=== PATIENT | male | born 1930 | race Caucasian/White ===

== ENCOUNTER 2018-11-28 16:25 | Inpatient (IN) | payer MEDICARE, OTHER ==
[~2018-11-28] VITALS: Ht 185.4 cm; Wt 97.1 kg
[2018-11-28 16:25] VITALS: BP 129/67
[~2018-11-28 16:25] MED LIST: AMLO5TAB6 PO; ASPI81TA26 PO; LISI40TA PO; VITA100067 PO
[2018-11-28] MEDS ORDERED: MAALOX 30 ML SUSP *UDC PO PRN (17:00)
[2018-11-28] MEDS ORDERED: ONDANSETRON 4 MG TAB (S0181) PO PRN (17:00)
[2018-11-28] MEDS ORDERED: ATOR40TA75 PO (17:16)
[2018-11-28] MEDS ORDERED: LISI40TA PO (17:16)
[2018-11-28] MEDS ORDERED: COLA100C5 PO (17:16)
[2018-11-28] MEDS ORDERED: ACET-907 PO (17:16)
[2018-11-28] MEDS ORDERED: LOVE1INJ SC (17:16)
[2018-11-28] MEDS ORDERED: D32000TA PO (17:16)
[2018-11-28] MEDS ORDERED: BAYE325T12 PO (17:16)
[2018-11-28] MEDS ORDERED: LASI20TA3 PO (17:16)
--- NOTE | 2018-11-28 17:21 | HPEPDOC ---
Trauma Coordinator Note DATE OF ADMISSION: November 28, 2018 at 16:25 SOURCE OF ADMISSION INFORMATION: [facility] records and patient CHIEF COMPLAINT:multiple strokes HISTORY OF PRESENT ILLNESS: 88M pmh BPH, spinal stenosis with RLE pain and weakness, penile cancer, HTN, who had altered mental status while home and presented to [facility], last known to be well on 11/20/18. He had left sided weakness and fell while home, in addition to having dark urine. He was transferred to [facility] on 11/23/18 where initial CTH did not show hemorrhage or mass, however MRI on 11/24/18 showed, tiny foci of hyperdensityleft parietal subcorticalright occipitalright cerebellum, for which acute to subacute infarcts are likely. He was started on high dose ASA and underwent a CTA neck which did not show aneurysms, AVMs, or dissections with 53% stenosis..right proximal ICA and 40% stenosisleft proximal ICA. 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 He had imaging of his right LE which was positive for a proximal fibular fracture with impaction . He was seen by orthopedics, made WBAT and told to follow-up after discharge from rehab. He underwent LOOP recorder placement on 11/28/18, evaluated by therapy and found to have gait and ADL impairment and deemed medically appropriate for discharge to ARU on 11/28/18. REVIEW OF SYSTEMS: The following is a completed review of systems and has been reviewed. Review of systems otherwise unremarkable. PAIN: Patient self reports right knee pain EYES: Negative for recent vision loss EARS, NOSE, & THROAT: +dysphagia, +hearing loss CARDIOVASCULAR: denies chest pain or palpitations, +LOOP PULMONARY: Negative. Denies shortness of breath GASTROINTESTINAL: +constipation GENITOURINARY: Negative for dysuria MUSCULOSKELETAL: Right fibula fracture and right knee/hip pain NEUROLOGICAL: +stroke SKIN:no rash PSYCHIATRIC: Unremarkable All other review of systems found to be negative. PAST MEDICAL HISTORY: as per HPI ALLERGIES: Please see below. MEDICATIONS: Please see below. 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 GENERAL: Pleasant and cooperative. No acute distress. HEENT: PERRL. Extraocular movements intact. Clear conjunctiva CARDIOVASCULAR: Regular rate and rhythm. No murmurs, rubs, or gallops LUNGS: Clear to auscultation bilaterally. No wheezes. No rhonchi ABDOMEN: Soft, nontender, nondistended. Positive bowel sounds. Normal active bowel sounds NEUROLOGICAL: Alert and oriented times three. Cranial nerves II through XII grossly intact. Sensation grossly intact throughout all 4 limbs -no dysmetria,a ble to follow complex commands +dysarthria EXTREMITIES: 5\5 strength bilateral upper extremities. 4\5 strength right azam DF and EHL, 3-/5 right knee extension and 2/5 right hip flexion 5/5 strength in left lower extremity. Right knee: +TTP medial joint line, no varus/valgus instability, negative Kenny, +effusion +anterior knee pain with internal hip rotation SKIN: right foot and ankle ecchymosis, right D1 abrasion (from recent fall) IMAGING: Imaging documentation personally reviewed by record FUNCTIONAL STATUS: Premorbid: Independent with all activities of daily life as well as mobility using a straight cane On Admission: Max assist for lower body dressing, toileting, , min assist for eating, Max assist for ambulation, total assist for stairs GOALS: Mod-I with RW for ambulation, stairs, bathing, dressing, functional transfers, caregiver training, assess for DME, home eval, medical optimization, advance diet. ASSESSMENT:88-year-old M with past medical history of who presents status post PLAN: 1. 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 Neuro: s/p multiple strokes, c/u statin and ASA 325mg for secondary stroke prevention -LOOP recorder in place, +PFO -will consult medicine -will start fluoxetine for motor recovery 3. 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 Resp: encourage incentive spirometry 5. : pmh BPH and penile cancer, monitor PVRs, f/u UA and Ucx 6. GI px: protonix, bowel meds 7. DVT ppx: will start lovenox 8. Ortho: chronic low back pain with radiculopathy contributing to RLE weakness, right proximal fibular fracture will need outpatient ortho f/u 8. Dispo: TBD POST ADMISSION PHYSICIAN EVALUATION: Medical and functional status: Description of medical status, medical assessment: As above. Rehabilitation diagnosis and current and prior cold morbid medical conditions as above. Risk of complications and plans to mitigate them as above. Description of functional status current status is as above. Prior status as above. Status compared to preadmission: There are no clinically significant differences between the patient's current status and the information described on the preadmission screening document. Treatment plan anticipated: Treatment plan is as described above. Required disciplines including physical therapy, occupational therapy, others as noted above Intensity of services: 3 hours a day, 6 days a week. Special considerations: There are no specific special or safety considerations that would likely preclude immediate implementation of an intensive rehabi litation program or subsequently influence the plan of care ATTESTATION: Considering all the information above, it is my best judgment that this patient requires intensive rehabilitation therapy as described above and an inpatient hospital environment due to the complexity of nursing, medical, and rehabilitation needs required by the patient. Furthermore, this patient can reasonably be expected to participate in an benefit from an inpatient rehabilitation stay with an interdisciplinary team approach to the delivery of rehabilitation care under the direction and supervision of rehabilitation physician. PROGNOSIS:good ESTIMATED LENGTH OF STAY: 14-18 days. PROJECTED DISCHARGE DESTINATION: Home with family support and any durable medical equipment required to increase functional safety and mobility TIME SPENT COUNSELING AND COORDINATING INITIAL CARE: Greater than 70 minutes. Vital Signs Vital Signs Date Time Temp Pulse Resp B/P (MAP) Pulse Ox O2 Delivery O2 Flow Rate FiO2 11/28/18 16:25 98.1 97 18 129/67 (87) 95 Home Medications Scheduled Aspirin (Aspirin) 325 Mg Tablet, 325 MG PO DAILY, (Reported) Atorvastatin Calcium (Atorvastatin Calcium) 40 Mg Tablet, 40 MG PO QHS, (Reported) Cholecalciferol (Vitamin D3) (Vitamin D3) 2,000 Unit Tablet, 2,000 UNIT PO DAILY, (Reported) Docusate Sodium (Colace) 100 Mg Capsule, 100 MG PO BID, (Reported) Enoxaparin Sodium (Lovenox) 40 Mg/0.4 Ml Syringe, 40 MG SC DAILY, (Reported) Furosemide (Lasix) 20 Mg Tablet, 20 MG PO DAILY, (Reported) Lisinopril (Lisinopril) 40 Mg Tablet, 40 MG PO DAILY, (Reported) Scheduled PRN Acetaminophen (Tylenol) 325 Mg Tablet, 650 MG PO Q6H PRN for PAIN, (Reported) Allergies Coded Allergies: Penicillins (Verified Allergy, Intermediate, RASH, 11/28/18) A-FIB/CHADSVASC A-FIB History Current/History of A-Fib/PAF?: No BRADY BUTLER MD November 28, 2018 17:21
[2018-11-28 17:52] LABS: APPEARANCE, URINE CLEAR (CLEAR); BACTERIA, URINE AUTO NEGATIVE (NEGATIVE); BILIRUBIN, URINE AUTO NEGATIVE (NEGATIVE); BLOOD, URINE BLOOD NEGATIVE (NEGATIVE); COLOR, URINE YELLOW (YELLOW); GLUCOSE, URINE (UA) AUTO NEGATIVE (NEGATIVE); KETONE, URINE AUTO NEGATIVE (NEGATIVE); LEUKOCYTE ESTERASE, URINE AUTO NEGATIVE (NEGATIVE); MUCUS, URINE SMALL (NEGATIVE); NITRITE, URINE AUTO NEGATIVE (NEGATIVE); PROTEIN, URINE AUTO NEGATIVE (NEGATIVE); RBC, URINE AUTO 0 /HPF (0-3); SQUAMOUS EPITHELIAL CELL UR AU 1 /HPF (0-6); UROBILINOGEN, URINE AUTO 0.2 mg/dL (0.0-2.0); WBC, URINE AUTO 2 /HPF (0-3)
[2018-11-28 20:00] VITALS: BP 133/61
[2018-11-28] MEDS: ACETAMINOPHEN TAB 650MG DOSE (2X325MG) PO PRN (21:28)
[2018-11-28] MEDS: SENNA 8.6 MG TAB (SENOKOT) PO SCH (21:29)
[2018-11-28] MEDS: traZODone 25MG PER 1/2 TABLET PO SCH (21:29)
[2018-11-28] MEDS: DOCUSATE SODIUM 100 MG CAP PO SCH (21:29)
[2018-11-28] MEDS: ATORVASTATIN 20 MG TAB PO SCH (21:29)
[2018-11-29 06:00] VITALS: BP 139/73
[2018-11-29 07:15] LABS: BASO % 0.3 % (0.0-1.0); EOS # 0.2 10^3/uL (0.0-0.50); EOS % 1.6 % (0.0-3.0); HEMATOCRIT 42.4 % (42.0-52.0); LYMPH # 2.8 10^3/uL (1.5-4.5); LYMPH % 27.3 % (24.0-44.0); MEAN CORPUSCULAR HEMOGLOBIN 30.8 pg (27.0-33.0); MEAN CORPUSCULAR VOLUME 93.2 fl (80.0-96.0); MONO # 1.1 10^3/uL (0.0-0.8); MONO % 10.1 % (0.0-5.0); NEUTROPHILS # 6.3 10^3/uL (1.8-7.7); NEUTROPHILS % 60.3 % (36.0-66.0); PLATELET COUNT, AUTOMATED 252 10^3/uL (150-450); RED BLOOD COUNT 4.55 10^6/uL (4.30-6.10); WHITE BLOOD COUNT 10.4 10^3/uL (4.0-10.0)
[2018-11-29 07:35] LABS: ALBUMIN 3.1 GM/DL (3.2-5.2); ALT/SGPT 38 U/L (12-78); BILIRUBIN,TOTAL 0.8 MG/DL (0.2-1.0); BLOOD UREA NITROGEN 24 MG/DL (7-18); CALCIUM LEVEL 9.4 MG/DL (8.8-10.2); CARBON DIOXIDE LEVEL 31 MEQ/L (21-32); CHLORIDE LEVEL 105 MEQ/L (98-107); CREATININE FOR GFR 1.01 MG/DL (0.70-1.30); GLOMERULAR FILTRATION RATE > 60.0 (>35); GLUCOSE, FASTING 98 MG/DL (70-100); SODIUM LEVEL 140 MEQ/L (136-145); TOTAL PROTEIN 5.9 GM/DL (6.4-8.2)
[2018-11-29] MEDS ORDERED: PREVNAR 13 VACCINE SYRINGE (CPT CODE:90670) IM ONE (09:00)
[2018-11-29] MEDS: FUROSEMIDE 20 MG TAB PO SCH (09:58)
[2018-11-29] MEDS: ASPIRIN 325 MG TAB PO SCH (09:58)
[2018-11-29] MEDS: PANTOPRAZOLE 40MG TAB (PROTONIX) PO SCH (09:58)
[2018-11-29] MEDS: FLUoxetine 20 MG CAP PO SCH (09:58)
[2018-11-29] MEDS: ENOXAPARIN 40 MG/0.4 ML SYRINGE (J1650) SC SCH (09:59)
[2018-11-29] MEDS: DOCUSATE SODIUM 100 MG CAP PO SCH ×3 (09:59→21:04)
[2018-11-29] MEDS: VITAMIN D 1,000 INTERNATIONAL UNITS TABLET PO SCH (09:59)
[2018-11-29] MEDS: LISINOPRIL 40 MG TAB PO SCH (10:02)
[2018-11-29 14:00] VITALS: BP 107/52
--- NOTE | 2018-11-29 14:05 | NUR ---
Pt tolerated regular solids and thin liquids w/o s/sx aspiration or penetration. Recommend regular solids and thin liquids as safest and least restrictive diet. Addendum: 11/29/18 at 1405 by HECTOR COLEMAN [facility] SP Amended: Links added.
--- NOTE | 2018-11-29 14:10 | NUR ---
Pt referred for cognitive-linguistic evaluation s/p multiple acute vs subacute CVA's. Evaluation completed this date using CLQT and informal assessment. Pt scored as a mild cognitive impairment, although he states he believes this is baseline for him, and he is aware of a slight memory impairment prior to his CVA. However, pt also demonstrated poor executive function including goal-setting, reasoning, and judgement. Recommend cognitive tx targeting this skills to maximize safe and independent participation in ADL's. Pt also demonstrated decreased divergent naming and reports a mild anomia since his CVA. Recommend f/u adult language evaluation to more completely assess this. Addendum: 11/29/18 at 1414 by HECTOR COLEMAN [facility] SP Amended: Links added.
--- NOTE | 2018-11-29 16:14 | IPNPDOC ---
PM&R Progress Note DATE OF SERVICE: November 29, 2018 Cubing Machine Tender Progress Note Subjective: Aleksander reports hisr gith knee is bothering him with walking, but states his overall right leg weakness is not new. REVIEW OF SYSTEMS: The following is a completed review of systems and has been reviewed. Review of systems otherwise unremarkable. PAIN: Patient self reports right knee pain EYES: Negative for recent vision loss EARS, NOSE, & THROAT: +dysphagia, +hearing loss CARDIOVASCULAR: denies chest pain or palpitations, +LOOP PULMONARY: Negative. Denies shortness of breath GASTROINTESTINAL: +constipation GENITOURINARY: Negative for dysuria MUSCULOSKELETAL: Right fibula fracture and right knee/hip pain NEUROLOGICAL: +stroke SKIN:no rash PSYCHIATRIC: Unremarkable All other review of systems found to be negative. PHYSICAL EXAMINATION: VITAL SIGNS: Please see below. GENERAL: Pleasant and cooperative. No acute distress. HEENT: PERRL. Extraocular movements intact. Clear conjunctiva CARDIOVASCULAR: Regular rate and rhythm. No murmurs, rubs, or gallops LUNGS: Clear to auscultation bilaterally. No wheezes. No rhonchi ABDOMEN: Soft, nontender, nondistended. Positive bowel sounds. Normal active bowel sounds NEUROLOGICAL: Alert and oriented times three. Cranial nerves II through XII grossly intact. Sensation grossly intact throughout all 4 limbs -no dysmetria,a ble to follow complex commands +dysarthria EXTREMITIES: 5\5 strength bilateral upper extremities. 4\5 strength right azam DF and EHL, 3-/5 right knee extension and 2/5 right hip flexion 5/5 strength in left lower extremity. Right knee: +TTP medial joint line, no varus/valgus instability, negative Kenny, +effusion +anterior knee pain with internal hip rotation SKIN: right foot and ankle ecchymosis, right D1 abrasion (from recent fall) GOALS: Mod-I with RW for ambulation, stairs, bathing, dressing, functional transfers, caregiver training, assess for DME, home eval, medical optimization, advance diet. ASSESSMENT:88-year-old M with past medical history of who presents status post PLAN: 1. 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 Neuro: s/p multiple strokes, c/u statin and ASA 325mg for secondary stroke prevention -LOOP recorder in place, +PFO -will consult medicine -will start fluoxetine for motor recovery 3. 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 Resp: encourage incentive spirometry 5. : pmh BPH and penile cancer, monitor PVRs, f/u UA and Ucx 6. GI px: protonix, bowel meds 7. DVT ppx: will start lovenox 8. Ortho: chronic low back pain with radiculopathy contributing to RLE weakness, right proximal fibular fracture will need outpatient ortho f/u -right knee pain with effusion likely from fibular fracture -will start gabapentin for nerve pain coming from back and lidoderm patch with ice for right knee swelling, do not suspect septic joint at this time as able to bear weight and range easily 8. Dispo: TBD Allergies Coded Allergies: Penicillins (Verified Allergy, Intermediate, RASH, 11/28/18) Vital Signs Vital Signs Date Time Temp Pulse Resp B/P (MAP) Pulse Ox O2 Delivery O2 Flow Rate FiO2 11/29/18 06:00 98.1 77 19 139/73 (95) 95 Laboratory Data CBC/BMP Laboratory Tests 11/29/18 06:50 Red Blood Count 4.55, Mean Corpuscular Volume 93.2, Mean Corpuscular Hemoglobin 30.8, Mean Corpuscular Hemoglobin Concent 33.0, Red Cell Distribution Width 12.5, Neutrophils (%) (Auto) 60.3, Lymphocytes (%) (Auto) 27.3, Monocytes (%) (Auto) 10.1 H, Eosinophils (%) (Auto) 1.6, Basophils (%) (Auto) 0.3, Neutrophils # (Auto) 6.3, Lymphocytes # (Auto) 2.8, Monocytes # (Auto) 1.1 H, Eosinophils # (Auto) 0.2, Basophils # (Auto) 0.0, Calcium Level 9.4, Aspartate Amino Transf (AST/SGOT) 24, Alanine Aminotransferase (ALT/SGPT) 38, Alkaline Phosphatase 70, Total Bilirubin 0.8, Total Protein 5.9 L, Albumin 3.1 L Labs 24H Laboratory Tests 2 11/28/18 17:25: Urine Appearance CLEAR, Urine Color YELLOW, Urine pH 5.0, Urine Specific [place] 1.020, Urine Protein NEGATIVE, Urine Glucose (UA) NEGATIVE, Urine Ketones NEGATIVE, Urine Urobilinogen 0.2, Urine Bilirubin NEGATIVE, Urine Leukocyte Esterase NEGATIVE, Urine Blood NEGATIVE, Urine Nitrite NEGATIVE, Urine WBC (Auto) 2, Urine RBC (Auto) 0, Urine Hyaline Casts (Auto) 4, Urine Bacteria (Auto) NEGATIVE, Urine Squamous Epithelial Cells 1, Urine Mucus (Auto) SMALL, Urine Sperm (Auto) 11/29/18 06:50: Immature Granulocyte % (Auto) 0.4, White Blood Count 10.4H, Red Blood Count 4.55, Hemoglobin 14.0, Hematocrit 42.4, Mean Corpuscular Volume 93.2, Mean Corpuscular Hemoglobin 30.8, Mean Corpuscular Hemoglobin Concent 33.0, Red Cell Distribution Width 12.5, Platelet Count 252, Neutrophils (%) (Auto) 60.3, Lymphocytes (%) (Auto) 27.3, Monocytes (%) (Auto) 10.1H, Eosinophils (%) (Auto) 1.6, Basophils (%) (Auto) 0.3, Neutrophils # (Auto) 6.3, Lymphocytes # (Auto) 2.8, Monocytes # (Auto) 1.1H, Eosinophils # (Auto) 0.2, Basophils # (Auto) 0.0, Nucleated Red Blood Cells % (auto) 0.0, Anion Gap 4L, Glomerular Filtration Rate > 60.0, Blood Urea Nitrogen 24H, Creatinine 1.01, Sodium Level 140, Potassium Level 4.0, Chloride Level 105, Carbon Dioxide Level 31, Calcium Level 9.4, Aspartate Amino Transf (AST/SGOT) 24, Alanine Aminotransferase (ALT/SGPT) 38, Alkaline Phosphatase 70, Total Bilirubin 0.8, Total Protein 5.9L, Albumin 3.1L, Albumin/Globulin Ratio 1.11 Microbiology Microbiology 11/28/18 Urine Culture - Final, Complete Current Medications Current Medications Current Medications Acetaminophen (Tylenol Tab) 650 mg Q6HP PRN PO PAIN / FEVER Last administered on 11/28/18at 21:28; Start 11/28/18 at 17:15 Al Hydrox/Mg Hydrox/Simethicone (Mylanta) 30 ml Q4HP PRN PO DYSPEPSIA; Start 11/28/18 at 17:00 Aspirin (Aspirin) 325 mg DAILY PO Last administered on 11/29/18at 09:58; Start 11/29/18 at 09:00 Atorvastatin Calcium (Lipitor) 40 mg QHS PO Last administered on 11/28/18 21:29; Start 11/28/18 at 21:00 Bisacodyl (Dulcolax Suppository) 10 mg DAILYPRN PRN [place] CONSTIPATION; Start 11/28/18 at 17:00 Docusate Sodium (Colace) 100 mg BID PO Last administered on 11/29/18 09:59; Start 11/28/18 at 21:00 Enoxaparin Sodium (Lovenox) 40 mg DAILY SC Last administered on 11/29/18 09:59; Start 11/29/18 at 09:00 Fluoxetine HCl (PROzac) 20 mg DAILY PO Last administered on 11/29/18 09:58; Start 11/29/18 at 09:00 Furosemide (Lasix) 20 mg DAILY PO Last administered on 11/29/18 09:58; Start 11/29/18 at 09:00 Home Med (Med Rec Complete!) ASDIRECTED XX ; Start 11/28/18 at 17:30; Stop 11/28/18 at 17:30; Status DC Lisinopril (Prinivil) 40 mg DAILY PO Last administered on 11/29/18at 10:02; Start 11/29/18 at 09:00 Ondansetron HCl (Zofran) 4 mg Q6HP PRN PO NAUSEA; Start 11/28/18 at 17:00 Pantoprazole Sodium (Protonix) 40 mg DAILY PO Last administered on 11/29/18 09:58; Start 11/29/18 at 09:00 Senna (Senokot) 1 tab QHS PO Last administered on 11/28/18 21:29; Start 11/28/18 at 21:00 Trazodone HCl (Desyrel) 25 mg QHS PO Last administered on 11/28/18 21:29; Start 11/28/18 at 21:00 Vitamin D (Vitamin D) 2,000 units DAILY PO Last administered on 11/29/18 09:59; Start 11/29/18 at 09:00 A-FIB/CHADSVASC A-FIB History Current/History of A-Fib/PAF?: No BRADY BUTLER MD November 29, 2018 16:14
[2018-11-29] MEDS ORDERED: LACTULOSE 20 GM/30 ML SYRUP UD PO ONE (16:30)
[2018-11-29] MEDS: GABAPENTIN 100 MG CAP PO SCH ×2 (16:52→21:04)
[2018-11-29] MEDS: DULoxetine 30 MG CAP (CYMBALTA) PO SCH (16:52)
[2018-11-29 20:00] VITALS: BP 112/64
[2018-11-29] MEDS: LIDOCAINE 5% (LIDODERM) PATCH TD SCH (21:04)
[2018-11-29] MEDS: traZODone 25MG PER 1/2 TABLET PO SCH (21:04)
[2018-11-29] MEDS: ATORVASTATIN 20 MG TAB PO SCH (21:04)
[2018-11-29] MEDS: SENNA 8.6 MG TAB (SENOKOT) PO SCH (21:04)
[2018-11-29] MEDS: ACETAMINOPHEN TAB 650MG DOSE (2X325MG) PO PRN (21:04)
[2018-11-30 06:00] VITALS: BP 115/58
[2018-11-30] MEDS: LISINOPRIL 40 MG TAB PO SCH (08:08)
[2018-11-30] MEDS: ACETAMINOPHEN TAB 650MG DOSE (2X325MG) PO PRN (08:08)
[2018-11-30] MEDS: FUROSEMIDE 20 MG TAB PO SCH (08:08)
[2018-11-30] MEDS: VITAMIN D 1,000 INTERNATIONAL UNITS TABLET PO SCH (08:08)
[2018-11-30] MEDS: FLUoxetine 20 MG CAP PO SCH (08:08)
[2018-11-30] MEDS: ASPIRIN 325 MG TAB PO SCH (08:08)
[2018-11-30] MEDS: ENOXAPARIN 40 MG/0.4 ML SYRINGE (J1650) SC SCH (08:08)
[2018-11-30] MEDS: DOCUSATE SODIUM 100 MG CAP PO SCH ×3 (08:08→20:13)
[2018-11-30] MEDS: DULoxetine 30 MG CAP (CYMBALTA) PO SCH (08:09)
[2018-11-30] MEDS: PANTOPRAZOLE 40MG TAB (PROTONIX) PO SCH (08:09)
[2018-11-30] MEDS: GABAPENTIN 100 MG CAP PO SCH ×3 (08:09→20:13)
[2018-11-30] MEDS: **NOTE PATIENT COMMENT** MISC XX SCH (08:09)
[2018-11-30 14:00] VITALS: BP 114/55
--- NOTE | 2018-11-30 14:07 | IPNPDOC ---
PM&R Progress Note DATE OF SERVICE: November 30, 2018 Post Closer Progress Note Post Closer Progress Note Subjective: Patient reports his right knee feels a little better today, but that the lidoderm patch fell off last night. REVIEW OF SYSTEMS: The following is a completed review of systems and has been reviewed. Review of systems otherwise unremarkable. PAIN: Patient self reports right knee pain EYES: Negative for recent vision loss EARS, NOSE, & THROAT: +dysphagia, +hearing loss CARDIOVASCULAR: denies chest pain or palpitations, +LOOP PULMONARY: Negative. Denies shortness of breath GASTROINTESTINAL: +constipation GENITOURINARY: Negative for dysuria MUSCULOSKELETAL: Right fibula fracture and right knee/hip pain NEUROLOGICAL: +stroke SKIN:no rash PSYCHIATRIC: Unremarkable All other review of systems found to be negative. PHYSICAL EXAMINATION: VITAL SIGNS: Please see below. GENERAL: Pleasant and cooperative. No acute distress. HEENT: PERRL. Extraocular movements intact. Clear conjunctiva CARDIOVASCULAR: Regular rate and rhythm. No murmurs, rubs, or gallops LUNGS: Clear to auscultation bilaterally. No wheezes. No rhonchi ABDOMEN: Soft, nontender, nondistended. Positive bowel sounds. Normal active bowel sounds NEUROLOGICAL: Alert and oriented times three. Cranial nerves II through XII grossly intact. Sensation grossly intact throughout all 4 limbs -no dysmetria,a ble to follow complex commands +dysarthria EXTREMITIES: 5\5 strength bilateral upper extremities. 4\5 strength right azam DF and EHL, 3-/5 right knee extension and 2/5 right hip flexion 5/5 strength in left lower extremity. Right knee: +TTP medial joint line, no varus/valgus instability, negative Kenny, +effusion +anterior knee pain with internal hip rotation SKIN: right foot and ankle ecchymosis, right D1 abrasion (from recent fall) ASSESSMENT:88-year-old M with past medical history of who presents status post multiple strokes PLAN: 1. 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 Neuro: s/p multiple strokes, c/u statin and ASA 325mg for secondary stroke prevention -LOOP recorder in place, +PFO -will consult medicine -will start fluoxetine for motor recovery 3. 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 Resp: encourage incentive spirometry 5. : pmh BPH and penile cancer, monitor PVRs, UA and Ucx negative 6. GI px: protonix, bowel meds 7. DVT ppx: will start lovenox 8. Ortho: chronic low back pain with radiculopathy contributing to RLE weakness, right proximal fibular fracture will need outpatient ortho f/u -right knee pain with effusion likely from fibular fracture -c/u gabapentin for nerve pain coming from back and lidoderm patch with ice for right knee swelling, do not suspect septic joint at this time as able to bear weight and range easily -will aslso start Cymbalta 8. Dispo: TBD Allergies Coded Allergies: Penicillins (Verified Allergy, Intermediate, RASH, 11/28/18) Vital Signs Vital Signs Date Time Temp Pulse Resp B/P (MAP) Pulse Ox O2 Delivery O2 Flow Rate FiO2 11/30/18 06:00 96.1 83 18 115/58 (77) 94 Microbiology Microbiology 11/28/18 Urine Culture - Final, Complete Current Medications Current Medications Current Medications Acetaminophen (Tylenol Tab) 650 mg Q6HP PRN PO PAIN / FEVER Last administered on 11/30/18at 08:08; Start 11/28/18 at 17:15 Al Hydrox/Mg Hydrox/Simethicone (Mylanta) 30 ml Q4HP PRN PO DYSPEPSIA; Start 11/28/18 at 17:00 Aspirin (Aspirin) 325 mg DAILY PO Last administered on 11/30/18at 08:08; Start 11/29/18 at 09:00 Atorvastatin Calcium (Lipitor) 40 mg QHS PO Last administered on 11/29/18at 21:04; Start 11/28/18 at 21:00 Bisacodyl (Dulcolax Suppository) 10 mg DAILYPRN PRN [place] CONSTIPATION; Start 11/28/18 at 17:00 Docusate Sodium (Colace) 100 mg BID PO Last administered on 11/29/18at 09:59; Start 11/28/18 at 21:00; Stop 11/29/18 at 16:15; Status DC Docusate Sodium (Colace) 100 mg TID PO Last administered on 11/30/18at 08:08; Start 11/29/18 at 16:00 Duloxetine HCl (Cymbalta) 30 mg DAILY PO Last administered on 11/30/18 08:09; Start 11/29/18 at 09:00 Enoxaparin Sodium (Lovenox) 40 mg DAILY SC Last administered on 11/30/18 08:08; Start 11/29/18 at 09:00 Fluoxetine HCl (PROzac) 20 mg DAILY PO Last administered on 11/30/18 08:08; Start 11/29/18 at 09:00 Furosemide (Lasix) 20 mg DAILY PO Last administered on 11/30/18 08:08; Start 11/29/18 at 09:00 Gabapentin (Neurontin) 100 mg TID PO Last administered on 11/30/18 08:09; Start 11/29/18 at 16:00 Home Med (Med Rec Complete!) ASDIRECTED XX ; Start 11/28/18 at 17:30; Stop 11/28/18 at 17:30; Status DC Lidocaine (Lidoderm Patch) 1 patch QHS TD Last administered on 11/29/18 21:04; Start 11/29/18 at 21:00 Lisinopril (Prinivil) 40 mg DAILY PO Last administered on 11/30/18 08:08; Sta rt 11/29/18 at 09:00 Non-Formulary Medication ( See Comment Field Below ) REMOVE LIDODERM PATCH DAILY XX Last administered on 11/30/18 08:09; Start 11/30/18 at 09:00 Ondansetron HCl (Zofran) 4 mg Q6HP PRN PO NAUSEA; Start 11/28/18 at 17:00 Pantoprazole Sodium (Protonix) 40 mg DAILY PO Last administered on 11/30/18 08:09; Start 11/29/18 at 09:00 Senna (Senokot) 1 tab QHS PO Last administered on 11/29/18 21:04; Start 11/28/18 at 21:00 Trazodone HCl (Desyrel) 25 mg QHS PO Last administered on 11/29/18 21:04; Start 11/28/18 at 21:00 Vitamin D (Vitamin D) 2,000 units DAILY PO Last administered on 11/30/18 08:08; Start 11/29/18 at 09:00 A-FIB/CHADSVASC A-FIB History Current/History of A-Fib/PAF?: No BRADY BUTLER MD November 30, 2018 14:07
--- NOTE | 2018-11-30 14:31 | NUR ---
Pt demonstrates difficulty w/ expressive language at the conversational level, demonstrating speech which lacks in content and w/ some circumlocution. Pt indicates that these difficulties do not impact him functionally and states that he does not wish to pursue language therapy. Rather, pt wishes to focus on dysarthria and memory impairment. Recommend that pt contact [facility] [employer] if he has increased difficulty or if he decides to participate in language therapy. Addendum: 11/30/18 at 1435 by HECTOR COLEMAN [facility] Amended: Links added.
--- NOTE | 2018-11-30 15:46 | NUR ---
Pt w/ moderate dysarthria characteristic of decreased loudness, monoloudness, and imprecise articulation. Recommend articulation therapy. Addendum: 11/30/18 at [address] [facility] Amended: Links added.
[2018-11-30 20:00] VITALS: BP 134/65
[2018-11-30] MEDS: SENNA 8.6 MG TAB (SENOKOT) PO SCH (20:13)
[2018-11-30] MEDS: traZODone 25MG PER 1/2 TABLET PO SCH (20:13)
[2018-11-30] MEDS: ATORVASTATIN 20 MG TAB PO SCH (20:13)
[2018-11-30] MEDS: LIDOCAINE 5% (LIDODERM) PATCH TD SCH (20:13)
[2018-12-01 06:00] VITALS: BP 120/74
[2018-12-01 07:12] LABS: HEMATOCRIT 40.3 % (42.0-52.0); HEMOGLOBIN 13.3 g/dl (13.5-17.5); MEAN CORPUSCULAR HEMOGLOBIN 31.4 pg (27.0-33.0); PLATELET COUNT, AUTOMATED 243 10^3/uL (150-450); RED BLOOD COUNT 4.24 10^6/uL (4.30-6.10); WHITE BLOOD COUNT 9.3 10^3/uL (4.0-10.0)
[2018-12-01 07:23] LABS: BLOOD UREA NITROGEN 25 MG/DL (7-18); CALCIUM LEVEL 9.1 MG/DL (8.8-10.2); CARBON DIOXIDE LEVEL 32 MEQ/L (21-32); CHLORIDE LEVEL 104 MEQ/L (98-107); CREATININE FOR GFR 0.81 MG/DL (0.70-1.30); GLOMERULAR FILTRATION RATE > 60.0 (>35); GLUCOSE, FASTING 96 MG/DL (70-100); POTASSIUM SERUM 4.2 MEQ/L (3.5-5.1); SODIUM LEVEL 136 MEQ/L (136-145)
[2018-12-01] MEDS: VITAMIN D 1,000 INTERNATIONAL UNITS TABLET PO SCH (08:05)
[2018-12-01] MEDS: PANTOPRAZOLE 40MG TAB (PROTONIX) PO SCH (08:05)
[2018-12-01] MEDS: ENOXAPARIN 40 MG/0.4 ML SYRINGE (J1650) SC SCH (08:05)
[2018-12-01] MEDS: FLUoxetine 20 MG CAP PO SCH (08:05)
[2018-12-01] MEDS: ASPIRIN 325 MG TAB PO SCH (08:05)
[2018-12-01] MEDS: DULoxetine 30 MG CAP (CYMBALTA) PO SCH (08:05)
[2018-12-01] MEDS: LISINOPRIL 40 MG TAB PO SCH (08:06)
[2018-12-01] MEDS: DOCUSATE SODIUM 100 MG CAP PO SCH ×3 (08:06→20:03)
[2018-12-01] MEDS: ACETAMINOPHEN TAB 650MG DOSE (2X325MG) PO PRN (08:06)
[2018-12-01] MEDS: FUROSEMIDE 20 MG TAB PO SCH (08:06)
[2018-12-01] MEDS: GABAPENTIN 100 MG CAP PO SCH ×3 (08:06→20:03)
[2018-12-01 08:18] VITALS: BP 124/68
[2018-12-01] MEDS: **NOTE PATIENT COMMENT** MISC XX SCH (09:00)
[2018-12-01 14:00] VITALS: BP 139/65
[2018-12-01 20:00] VITALS: BP 153/72
[2018-12-01] MEDS: LIDOCAINE 5% (LIDODERM) PATCH TD SCH (20:03)
[2018-12-01] MEDS: ATORVASTATIN 20 MG TAB PO SCH (20:03)
[2018-12-01] MEDS: SENNA 8.6 MG TAB (SENOKOT) PO SCH (20:03)
[2018-12-01] MEDS: traZODone 25MG PER 1/2 TABLET PO SCH (20:03)
[2018-12-02] MEDS: **NOTE PATIENT COMMENT** MISC XX SCH (09:00)
[2018-12-02] MEDS: PANTOPRAZOLE 40MG TAB (PROTONIX) PO SCH (09:55)
[2018-12-02] MEDS: GABAPENTIN 100 MG CAP PO SCH ×3 (09:55→20:59)
[2018-12-02] MEDS: FLUoxetine 20 MG CAP PO SCH (09:55)
[2018-12-02] MEDS: ENOXAPARIN 40 MG/0.4 ML SYRINGE (J1650) SC SCH (09:55)
[2018-12-02] MEDS: LISINOPRIL 40 MG TAB PO SCH (09:55)
[2018-12-02] MEDS: DOCUSATE SODIUM 100 MG CAP PO SCH ×3 (09:55→20:59)
[2018-12-02] MEDS: VITAMIN D 1,000 INTERNATIONAL UNITS TABLET PO SCH (09:56)
[2018-12-02] MEDS: DULoxetine 30 MG CAP (CYMBALTA) PO SCH (09:56)
[2018-12-02] MEDS: FUROSEMIDE 20 MG TAB PO SCH (09:56)
[2018-12-02] MEDS: ASPIRIN 325 MG TAB PO SCH (09:56)
[2018-12-02 14:00] VITALS: BP 120/62
[2018-12-02 20:00] VITALS: BP 135/60
[2018-12-02] MEDS: ACETAMINOPHEN TAB 650MG DOSE (2X325MG) PO PRN (20:06)
[2018-12-02] MEDS: ATORVASTATIN 20 MG TAB PO SCH (20:59)
[2018-12-02] MEDS: traZODone 25MG PER 1/2 TABLET PO SCH (20:59)
[2018-12-02] MEDS: SENNA 8.6 MG TAB (SENOKOT) PO SCH (20:59)
[2018-12-02] MEDS: LIDOCAINE 5% (LIDODERM) PATCH TD SCH (21:00)
[2018-12-03 06:00] VITALS: BP 130/75
[2018-12-03] MEDS: ACETAMINOPHEN TAB 650MG DOSE (2X325MG) PO PRN ×2 (06:55→20:46)
[2018-12-03] MEDS: DULoxetine 30 MG CAP (CYMBALTA) PO SCH ×2 (08:40→20:48)
[2018-12-03] MEDS: GABAPENTIN 100 MG CAP PO SCH ×3 (08:40→20:47)
[2018-12-03] MEDS: DOCUSATE SODIUM 100 MG CAP PO SCH ×3 (08:40→20:47)
[2018-12-03] MEDS: ASPIRIN 325 MG TAB PO SCH (08:40)
[2018-12-03] MEDS: VITAMIN D 1,000 INTERNATIONAL UNITS TABLET PO SCH (08:41)
[2018-12-03] MEDS: FUROSEMIDE 20 MG TAB PO SCH (08:41)
[2018-12-03] MEDS: FLUoxetine 20 MG CAP PO SCH (08:41)
[2018-12-03] MEDS: PANTOPRAZOLE 40MG TAB (PROTONIX) PO SCH (08:41)
[2018-12-03] MEDS: LISINOPRIL 40 MG TAB PO SCH (08:41)
[2018-12-03] MEDS: ENOXAPARIN 40 MG/0.4 ML SYRINGE (J1650) SC SCH (08:41)
[2018-12-03] MEDS: **NOTE PATIENT COMMENT** MISC XX SCH (08:42)
--- NOTE | 2018-12-03 10:33 | IPNPDOC ---
PM&R Progress Note DATE OF SERVICE: December 03, 2018 [employer] Progress Note Subjective: Patient reports his right leg hurts, but that this is not new. REVIEW OF SYSTEMS: The following is a completed review of systems and has been reviewed. Review of systems otherwise unremarkable. PAIN: Patient self reports right knee pain EYES: Negative for recent vision loss EARS, NOSE, & THROAT: +dysphagia, +hearing loss CARDIOVASCULAR: denies chest pain or palpitations, +LOOP PULMONARY: Negative. Denies shortness of breath GASTROINTESTINAL: +constipation GENITOURINARY: Negative for dysuria MUSCULOSKELETAL: Right fibula fracture and right knee/hip pain NEUROLOGICAL: +stroke SKIN:no rash PSYCHIATRIC: Unremarkable All other review of systems found to be negative. PHYSICAL EXAMINATION: VITAL SIGNS: Please see below. GENERAL: Pleasant and cooperative. No acute distress. HEENT: PERRL. Extraocular movements intact. Clear conjunctiva CARDIOVASCULAR: Regular rate and rhythm. No murmurs, rubs, or gallops LUNGS: Clear to auscultation bilaterally. No wheezes. No rhonchi ABDOMEN: Soft, nontender, nondistended. Positive bowel sounds. Normal active bowel sounds NEUROLOGICAL: Alert and oriented times three. Cranial nerves II through XII grossly intact. Sensation grossly intact throughout all 4 limbs -no dysmetria, able to follow complex commands +dysarthria EXTREMITIES: 5\5 strength bilateral upper extremities. 4\5 strength right azam DF and EHL, 3-/5 right knee extension and 2/5 right hip flexion 5/5 strength in left lower extremity. Right knee: +TTP medial joint line, no varus/valgus instability, negative Kenny, +effusion (improving) +anterior knee pain with internal hip rotation SKIN: right foot and ankle ecchymosis, right D1 abrasion (from recent fall) ASSESSMENT:88-year-old M with past medical history of who presents status post multiple strokes PLAN: 1. 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 Neuro: s/p multiple strokes, c/u statin and ASA 325mg for secondary stroke prevention -LOOP recorder in place, +PFO -c/u fluoxetine for motor recovery 3. Cardiac: +PFO on recent ECHO -pmh HTN, c/u BP meds and f/u with global logistics analyst 4. Resp: encourage incentive spirometry 5. : pmh BPH and penile cancer, monitor PVRs, UA and Ucx negative 6. GI px: protonix, bowel meds 7. DVT ppx: c/u lovenox 8. Ortho: chronic low back pain with radiculopathy contributing to RLE weakness, right proximal fibular fracture will need outpatient ortho f/u -right knee pain with effusion likely from fibular fracture-improving -c/u gabapentin for nerve pain coming from back and lidoderm patch with ice for right knee swelling, do not suspect septic joint at this time as able to bear weight and range easily -c/u Cymbalta -right ankle swelling and ecchymosis likely dependent from proximal femur fracture, not complaining of ankle pain at this time, will consider X-ray 8. Dispo: TBD Allergies Coded Allergies: Penicillins (Verified Allergy, Intermediate, RASH, 11/28/18) Vital Signs Vital Signs Date Time Temp Pulse Resp B/P (MAP) Pulse Ox O2 Delivery O2 Flow Rate FiO2 12/03/18 06:00 97.4 73 18 130/75 (93) 94 Microbiology Microbiology 11/28/18 Urine Culture - Final, Complete Current Medications Current Medications Current Medications Acetaminophen (Tylenol Tab) 650 mg Q6HP PRN PO PAIN / FEVER Last administered on 12/03/18at 06:55; Start 11/28/18 at 17:15 Al Hydrox/Mg Hydrox/Simethicone (Mylanta) 30 ml Q4HP PRN PO DYSPEPSIA; Start 11/28/18 at 17:00 Aspirin (Aspirin) 325 mg DAILY PO Last administered on 12/03/18at 08:40; Start 11/29/18 at 09:00 Atorvastatin Calcium (Lipitor) 40 mg QHS PO Last administered on 12/02/18at 20:59; Start 11/28/18 at 21:00 Bisacodyl (Dulcolax Suppository) 10 mg DAILYPRN PRN [place] CONSTIPATION; Start 11/28/18 at 17:00 Docusate Sodium (Colace) 100 mg BID PO Last administered on 11/29/18at 09:59; Start 11/28/18 at 21:00; Stop 11/29/18 at 16:15; Status DC Docusate Sodium (Colace) 100 mg TID PO Last administered on 12/03/18 08:40; Start 11/29/18 at 16:00 Duloxetine HCl (Cymbalta) 30 mg DAILY PO Last administered on 12/03/18 08:40; Start 11/29/18 at 09:00 Enoxaparin Sodium (Lovenox) 40 mg DAILY SC Last administered on 12/03/18 08:41; Start 11/29/18 at 09:00 Fluoxetine HCl (PROzac) 20 mg DAILY PO Last administered on 12/03/18 08:41; Start 11/29/18 at 09:00 Furosemide (Lasix) 20 mg DAILY PO Last administered on 12/03/18 08:41; Start 11/29/18 at 09:00 Gabapentin (Neurontin) 100 mg TID PO Last administered on 12/03/18 08:40; Start 11/29/18 at 16:00 Home Med (Med Rec Complete!) ASDIRECTED XX ; Start 11/28/18 at 17:30; Stop 11/28/18 at 17:30; Status DC Lidocaine (Lidoderm Patch) 1 patch QHS TD Last administered on 12/02/18 21:00; Start 11/29/18 at 21:00 Lisinopril (Prinivil) 40 mg DAILY PO Last administered on 12/03/18 08:41; Start 11/29/18 at 09:00 Non-Formulary Medication ( See Comment Field Below ) REMOVE LIDODERM PATCH DAILY XX Last administered on 12/03/18 08:42; Start 11/30/18 at 09:00 Ondansetron HCl (Zofran) 4 mg Q6HP PRN PO NAUSEA; Start 11/28/18 at 17:00 Pantoprazole Sodium (Protonix) 40 mg DAILY PO Last administered on 12/03/18 08:41; Start 11/29/18 at 09:00 Senna (Senokot) 1 tab QHS PO Last administered on 12/02/18 20:59; Start 11/28/18 at 21:00 Trazodone HCl (Desyrel) 25 mg QHS PO Last administered on 12/02/18 20:59; Start 11/28/18 at 21:00 Vitamin D (Vitamin D) 2,000 units DAILY PO Last administered on 5/6/19at 08:41; Start 11/29/18 at 09:00 A-FIB/CHADSVASC A-FIB History Current/History of A-Fib/PAF?: No BRADY BUTLER MD December 03, 2018 10:33
[2018-12-03 14:00] VITALS: BP 135/64
--- NOTE | 2018-12-03 16:13 | REP ---
Ankle: Four views: History: Recent right fibular fracture. Ankle swelling. Comparison imaging. Findings: There is diffuse ankle swelling most pronounced laterally and anteriorly. There is diffuse osteopenia. Ankle mortise is intact. No fracture is visible. There is swelling about the distal Achilles tendon as well. This should be correlated clinically. Mild vascular calcification is present. Impression: Diffuse swelling. Achilles tendon is partially obscured. No fracture is seen. Electronically Signed by Kalpesh Higuera MD 12/03/2018 05:12 P
[2018-12-03 20:00] VITALS: BP 144/71
[2018-12-03] MEDS: ATORVASTATIN 20 MG TAB PO SCH (20:46)
[2018-12-03] MEDS: traZODone 25MG PER 1/2 TABLET PO SCH (20:46)
[2018-12-03] MEDS: LIDOCAINE 5% (LIDODERM) PATCH TD SCH (20:47)
[2018-12-03] MEDS: ANALGESIC BALM CRM 120 GM TOP SCH (20:47)
[2018-12-03] MEDS: SENNA 8.6 MG TAB (SENOKOT) PO SCH (20:47)
[2018-12-04 06:00] VITALS: BP 157/72
[2018-12-04 07:02] LABS: HEMATOCRIT 39.9 % (42.0-52.0); HEMOGLOBIN 13.1 g/dl (13.5-17.5); MEAN CORPUSCULAR HGB CONC 32.8 g/dl (32.0-36.5); MEAN CORPUSCULAR VOLUME 94.3 fl (80.0-96.0); PLATELET COUNT, AUTOMATED 250 10^3/uL (150-450); RED BLOOD COUNT 4.23 10^6/uL (4.30-6.10); WHITE BLOOD COUNT 9.5 10^3/uL (4.0-10.0)
[2018-12-04 07:24] LABS: BLOOD UREA NITROGEN 21 MG/DL (7-18); CALCIUM LEVEL 9.2 MG/DL (8.8-10.2); CARBON DIOXIDE LEVEL 33 MEQ/L (21-32); CHLORIDE LEVEL 103 MEQ/L (98-107); CREATININE FOR GFR 0.85 MG/DL (0.70-1.30); GLOMERULAR FILTRATION RATE > 60.0 (>35); GLUCOSE, FASTING 99 MG/DL (70-100); POTASSIUM SERUM 4.2 MEQ/L (3.5-5.1); SODIUM LEVEL 137 MEQ/L (136-145)
[2018-12-04] MEDS: ENOXAPARIN 40 MG/0.4 ML SYRINGE (J1650) SC SCH (07:36)
[2018-12-04] MEDS: GABAPENTIN 100 MG CAP PO SCH ×3 (07:36→20:15)
[2018-12-04] MEDS: FLUoxetine 20 MG CAP PO SCH (07:37)
[2018-12-04] MEDS: ASPIRIN 325 MG TAB PO SCH (07:37)
[2018-12-04] MEDS: PANTOPRAZOLE 40MG TAB (PROTONIX) PO SCH (07:37)
[2018-12-04] MEDS: FUROSEMIDE 20 MG TAB PO SCH (07:37)
[2018-12-04] MEDS: LISINOPRIL 40 MG TAB PO SCH (07:37)
[2018-12-04] MEDS: DULoxetine 30 MG CAP (CYMBALTA) PO SCH ×2 (07:38→20:15)
[2018-12-04] MEDS: VITAMIN D 1,000 INTERNATIONAL UNITS TABLET PO SCH (07:38)
[2018-12-04] MEDS: DOCUSATE SODIUM 100 MG CAP PO SCH ×3 (07:38→20:15)
[2018-12-04] MEDS: ACETAMINOPHEN TAB 650MG DOSE (2X325MG) PO PRN (07:39)
[2018-12-04] MEDS: ANALGESIC BALM CRM 120 GM TOP SCH ×2 (07:39→20:14)
[2018-12-04] MEDS: **NOTE PATIENT COMMENT** MISC XX SCH (07:44)
[2018-12-04 14:00] VITALS: BP 127/58
[2018-12-04 20:00] VITALS: BP 142/70
[2018-12-04] MEDS: SENNA 8.6 MG TAB (SENOKOT) PO SCH (20:15)
[2018-12-04] MEDS: LIDOCAINE 5% (LIDODERM) PATCH TD SCH (20:15)
[2018-12-04] MEDS: ATORVASTATIN 20 MG TAB PO SCH (20:15)
[2018-12-04] MEDS: traZODone 25MG PER 1/2 TABLET PO SCH (20:15)
[2018-12-05 06:00] VITALS: BP 151/70
[2018-12-05] MEDS: GABAPENTIN 100 MG CAP PO SCH ×3 (08:55→20:54)
[2018-12-05] MEDS: ENOXAPARIN 40 MG/0.4 ML SYRINGE (J1650) SC SCH (08:55)
[2018-12-05] MEDS: VITAMIN D 1,000 INTERNATIONAL UNITS TABLET PO SCH (08:55)
[2018-12-05] MEDS: LISINOPRIL 40 MG TAB PO SCH (08:55)
[2018-12-05] MEDS: FLUoxetine 20 MG CAP PO SCH (08:55)
[2018-12-05] MEDS: PANTOPRAZOLE 40MG TAB (PROTONIX) PO SCH (08:56)
[2018-12-05] MEDS: DULoxetine 30 MG CAP (CYMBALTA) PO SCH ×2 (08:56→20:54)
[2018-12-05] MEDS: ASPIRIN 325 MG TAB PO SCH (08:56)
[2018-12-05] MEDS: FUROSEMIDE 20 MG TAB PO SCH (08:56)
[2018-12-05] MEDS: DOCUSATE SODIUM 100 MG CAP PO SCH ×3 (08:56→20:54)
[2018-12-05] MEDS: **NOTE PATIENT COMMENT** MISC XX SCH (08:57)
[2018-12-05] MEDS: ANALGESIC BALM CRM 120 GM TOP SCH ×2 (08:57→20:56)
[2018-12-05] MEDS: ACETAMINOPHEN TAB 650MG DOSE (2X325MG) PO PRN ×3 (08:57→22:27)
[2018-12-05 14:00] VITALS: BP 123/56
[2018-12-05 20:00] VITALS: BP 119/55
[2018-12-05] MEDS: LIDOCAINE 5% (LIDODERM) PATCH TD SCH (20:54)
[2018-12-05] MEDS: traZODone 25MG PER 1/2 TABLET PO SCH (20:54)
[2018-12-05] MEDS: ATORVASTATIN 20 MG TAB PO SCH (20:54)
[2018-12-05] MEDS: SENNA 8.6 MG TAB (SENOKOT) PO SCH (20:54)
[2018-12-06 05:30] VITALS: BP 134/64
[2018-12-06] MEDS: **NOTE PATIENT COMMENT** MISC XX SCH (09:00)
[2018-12-06] MEDS: ENOXAPARIN 40 MG/0.4 ML SYRINGE (J1650) SC SCH (09:39)
[2018-12-06] MEDS: DULoxetine 30 MG CAP (CYMBALTA) PO SCH ×2 (09:39→21:27)
[2018-12-06] MEDS: PANTOPRAZOLE 40MG TAB (PROTONIX) PO SCH (09:39)
[2018-12-06] MEDS: ASPIRIN 325 MG TAB PO SCH (09:39)
[2018-12-06] MEDS: DOCUSATE SODIUM 100 MG CAP PO SCH ×3 (09:39→21:26)
[2018-12-06] MEDS: FLUoxetine 20 MG CAP PO SCH (09:39)
[2018-12-06] MEDS: LISINOPRIL 40 MG TAB PO SCH (09:40)
[2018-12-06] MEDS: VITAMIN D 1,000 INTERNATIONAL UNITS TABLET PO SCH (09:40)
[2018-12-06] MEDS: GABAPENTIN 100 MG CAP PO SCH ×3 (09:40→21:26)
[2018-12-06] MEDS: FUROSEMIDE 20 MG TAB PO SCH (09:40)
[2018-12-06] MEDS: ACETAMINOPHEN TAB 650MG DOSE (2X325MG) PO PRN (09:41)
[2018-12-06] MEDS: ANALGESIC BALM CRM 120 GM TOP SCH ×2 (09:43→21:00)
--- NOTE | 2018-12-06 10:07 | IPNPDOC ---
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 REVIEW OF SYSTEMS: The following is a completed review of systems and has been reviewed. Review of systems otherwise unremarkable. PAIN: Patient self reports right knee pain EYES: Negative for recent vision loss EARS, NOSE, & THROAT: +dysphagia (improving) +hearing loss CARDIOVASCULAR: denies chest pain or palpitations, +LOOP PULMONARY: Negative. Denies shortness of breath GASTROINTESTINAL: +constipation GENITOURINARY: Negative for dysuria MUSCULOSKELETAL: Right fibula fracture and right knee/hip pain NEUROLOGICAL: +stroke SKIN:no rash PSYCHIATRIC: Unremarkable All other review of systems found to be negative. PHYSICAL EXAMINATION: VITAL SIGNS: Please see below. GENERAL: Pleasant and cooperative. No acute distress. HEENT: PERRL. Extraocular movements intact. Clear conjunctiva CARDIOVASCULAR: Regular rate and rhythm. No murmurs, rubs, or gallops LUNGS: Clear to auscultation bilaterally. No wheezes. No rhonchi ABDOMEN: Soft, nontender, nondistended. Positive bowel sounds. Normal active bowel sounds NEUROLOGICAL: Alert and oriented times three. Cranial nerves II through XII grossly intact. Sensation grossly intact throughout all 4 limbs -no dysmetria, able to follow complex commands +dysarthria EXTREMITIES: 5\\5 strength bilateral upper extremities. 4\\5 strength right azam DF and EHL, 3-/5 right knee extension and 2/5 right hip flexion 5/5 strength in left lower extremity. Right knee: +TTP medial joint line, no varus/valgus instability, negative Kenny, +effusion (improving) +anterior knee pain with internal hip rotation right ankle +TTP insertion of achilles tendon onto calcaneus SKIN: right foot and ankle ecchymosis, right D1 abrasion (from recent fall) ASSESSMENT:88-year-old M with past medical history of who presents status post multiple strokes PLAN: 1. 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 Neuro: s/p multiple strokes, c/u statin and ASA 325mg for secondary stroke prevention -LOOP recorder in place, +PFO -c/u fluoxetine for motor recovery 3. Cardiac: +PFO on recent ECHO -pmh HTN, c/u BP meds and f/u with printed circuit boards router 4. Resp: encourage incentive spirometry 5. : pmh BPH and penile cancer, monitor PVRs, UA and Ucx negative 6. GI px: protonix, bowel meds 7. DVT ppx: c/u lovenox 8. Ortho: chronic low back pain with radiculopathy contributing to RLE weakness, right proximal fibular fracture will need outpatient ortho f/u -right knee pain with effusion likely from fibular fracture-improving -c/u gabapentin for nerve pain coming from back and lidoderm patch with ice for right knee swelling,increase Cymbalta to 30mg BID -right ankle swelling and ecchymosis likely dependent from proximal femur fracture, today suspect Achilles tendinopathy, ankle X-ray "Diffuse swelling. Achilles tendon is partially obscured. No fracture is seen." 8. Dispo: TBD Allergies Coded Allergies: Penicillins (Verified Allergy, Intermediate, RASH, 11/28/18) Vital Signs Vital Signs Date Time Temp Pulse Resp B/P (MAP) Pulse Ox O2 Delivery O2 Flow Rate FiO2 12/06/18 05:30 97.2 88 19 134/64 (87) 94 Microbiology Microbiology 11/28/18 Urine Culture - Final, Complete Current Medications Current Medications Current Medications Acetaminophen (Tylenol Tab) 650 mg Q6HP PRN PO PAIN / FEVER Last administered on 12/06/18at 09:41; Start 11/28/18 at 17:15 Al Hydrox/Mg Hydrox/Simethicone (Mylanta) 30 ml Q4HP PRN PO DYSPEPSIA; Start 11/28/18 at 17:00 Aspirin (Aspirin) 325 mg DAILY PO Last administered on 12/06/18at 09:39; Start 11/29/18 at 09:00 Atorvastatin Calcium (Lipitor) 40 mg QHS PO Last administered on 12/05/18at 20:54; Start 11/28/18 at 21:00 Bisacodyl (Dulcolax Suppository) 10 mg DAILYPRN PRN [place] CONSTIPATION; Start 11/28/18 at 17:00 Docusate Sodium (Colace) 100 mg BID PO Last administered on 11/29/18at 09:59; Start 11/28/18 at 21:00; Stop 11/29/18 at 16:15; Status DC Docusate Sodium (Colace) 100 mg TID PO Last administered on 12/06/18 09:39; Start 11/29/18 at 16:00 Duloxetine HCl (Cymbalta) 30 mg BID PO Last administered on 12/06/18 09:39; Start 12/03/18 at 21:00 Duloxetine HCl (Cymbalta) 30 mg DAILY PO Last administered on 12/03/18 08:40; Start 11/29/18 at 09:00; Stop 12/03/18 at 14:17; Status DC Enoxaparin Sodium (Lovenox) 40 mg DAILY SC Last administered on 12/06/18 09:39; Start 11/29/18 at 09:00 Fluoxetine HCl (PROzac) 20 mg DAILY PO Last administered on 12/06/18 09:39; Start 11/29/18 at 09:00 Furosemide (Lasix) 20 mg DAILY PO Last administered on 12/06/18 09:40; Start 11/29/18 at 09:00 Gabapentin (Neurontin) 100 mg TID PO Last administered on 12/06/18 09:40; Start 11/29/18 at 16:00 Home Med (Med Rec Complete!) ASDIRECTED XX ; Start 11/28/18 at 17:30; Stop 11/28/18 at 17:30; Status DC Lidocaine (Lidoderm Patch) 1 patch QHS TD Last administered on 12/05/18 20:54; Start 11/29/18 at 21:00 Lisinopril (Prinivil) 40 mg DAILY PO Last administered on 12/06/18 09:40; Start 11/29/18 at 09:00 Menthol/Methyl Salicylate (Bengay Cream) 1 dose BID TOP Last administered on 12/06/18 09:43; Start 12/03/18 at 21:00 Non-Formulary Medication ( See Comment Field Below ) REMOVE LIDODERM PATCH DAILY XX Last administered on 12/06/18 09:00; Start 11/30/18 at 09:00 Ondansetron HCl (Zofran) 4 mg Q6HP PRN PO NAUSEA; Start 11/28/18 at 17:00 Pantoprazole Sodium (Protonix) 40 mg DAILY PO Last administered on 12/06/18 09:39; Start 11/29/18 at 09:00 Senna (Senokot) 1 tab QHS PO Last administered on 12/05/18 20:54; Start 11/28/18 at 21:00 Trazodone HCl (Desyrel) 25 mg QHS PO Last administered on 12/05/18 20:54; Start 11/28/18 at 21:00 Vitamin D (Vitamin D) 2,000 units DAILY PO Last administered on 12/06/18 09:40; Start 11/29/18 at 09:00 A-FIB/CHADSVASC A-FIB History Current/History of A-Fib/PAF?: No BRADY BUTLER MD December 06, 2018 10:07
--- NOTE | 2018-12-06 10:07 | IPNPDOC ---
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 REVIEW OF SYSTEMS: The following is a completed review of systems and has been reviewed. Review of systems otherwise unremarkable. PAIN: Patient self reports right knee pain EYES: Negative for recent vision loss EARS, NOSE, & THROAT: +dysphagia (improving) +hearing loss CARDIOVASCULAR: denies chest pain or palpitations, +LOOP PULMONARY: Negative. Denies shortness of breath GASTROINTESTINAL: +constipation GENITOURINARY: Negative for dysuria MUSCULOSKELETAL: Right fibula fracture and right knee/hip pain NEUROLOGICAL: +stroke SKIN:no rash PSYCHIATRIC: Unremarkable All other review of systems found to be negative. PHYSICAL EXAMINATION: VITAL SIGNS: Please see below. GENERAL: Pleasant and cooperative. No acute distress. HEENT: PERRL. Extraocular movements intact. Clear conjunctiva CARDIOVASCULAR: Regular rate and rhythm. No murmurs, rubs, or gallops LUNGS: Clear to auscultation bilaterally. No wheezes. No rhonchi ABDOMEN: Soft, nontender, nondistended. Positive bowel sounds. Normal active bowel sounds NEUROLOGICAL: Alert and oriented times three. Cranial nerves II through XII grossly intact. Sensation grossly intact throughout all 4 limbs -no dysmetria, able to follow complex commands +dysarthria EXTREMITIES: 5\\5 strength bilateral upper extremities. 4\\5 strength right azam DF and EHL, 3-/5 right knee extension and 2/5 right hip flexion 5/5 strength in left lower extremity. Right knee: +TTP medial joint line, no varus/valgus instability, negative Kenny, +effusion (improving) +anterior knee pain with internal hip rotation right ankle +TTP insertion of achilles tendon onto calcaneus SKIN: right foot and ankle ecchymosis, right D1 abrasion (from recent fall) ASSESSMENT:88-year-old M with past medical history of who presents status post multiple strokes PLAN: 1. 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 Neuro: s/p multiple strokes, c/u statin and ASA 325mg for secondary stroke prevention -LOOP recorder in place, +PFO -c/u fluoxetine for motor recovery 3. 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 Resp: encourage incentive spirometry 5. : pmh BPH and penile cancer, monitor PVRs, UA and Ucx negative 6. GI px: protonix, bowel meds 7. DVT ppx: c/u lovenox 8. Ortho: chronic low back pain with radiculopathy contributing to RLE weakness, right proximal fibular fracture will need outpatient ortho f/u -right knee pain with effusion likely from fibular fracture-improving -c/u gabapentin for nerve pain coming from back and lidoderm patch with ice for right knee swelling, c/u Cymbalta -right ankle swelling and ecchymosis likely dependent from proximal femur fracture, today suspect Achilles tendinopathy, ankle X-ray "Diffuse swelling. Achilles tendon is partially obscured. No fracture is seen." 8. Dispo: TBD Allergies Coded Allergies: Penicillins (Verified Allergy, Intermediate, RASH, 11/28/18) Vital Signs Vital Signs Date Time Temp Pulse Resp B/P (MAP) Pulse Ox O2 Delivery O2 Flow Rate FiO2 12/06/18 05:30 97.2 88 19 134/64 (87) 94 Microbiology Microbiology 11/28/18 Urine Culture - Final, Complete Current Medications Current Medications Current Medications Acetaminophen (Tylenol Tab) 650 mg Q6HP PRN PO PAIN / FEVER Last administered on 12/06/18at 09:41; Start 11/28/18 at 17:15 Al Hydrox/Mg Hydrox/Simethicone (Mylanta) 30 ml Q4HP PRN PO DYSPEPSIA; Start 11/28/18 at 17:00 Aspirin (Aspirin) 325 mg DAILY PO Last administered on 12/06/18at 09:39; Start 11/29/18 at 09:00 Atorvastatin Calcium (Lipitor) 40 mg QHS PO Last administered on 12/05/18at 20:54; Start 11/28/18 at 21:00 Bisacodyl (Dulcolax Suppository) 10 mg DAILYPRN PRN [place] CONSTIPATION; Start 11/28/18 at 17:00 Docusate Sodium (Colace) 100 mg BID PO Last administered on 11/29/18at 09:59; Start 11/28/18 at 21:00; Stop 11/29/18 at 16:15; Status DC Docusate Sodium (Colace) 100 mg TID PO Last administered on 12/06/18 09:39; Start 11/29/18 at 16:00 Duloxetine HCl (Cymbalta) 30 mg BID PO Last administered on 12/06/18 09:39; Start 12/03/18 at 21:00 Duloxetine HCl (Cymbalta) 30 mg DAILY PO Last administered on 12/03/18 08:40; Start 11/29/18 at 09:00; Stop 12/03/18 at 14:17; Status DC Enoxaparin Sodium (Lovenox) 40 mg DAILY SC Last administered on 12/06/18 09:39; Start 11/29/18 at 09:00 Fluoxetine HCl (PROzac) 20 mg DAILY PO Last administered on 12/06/18 09:39; Start 11/29/18 at 09:00 Furosemide (Lasix) 20 mg DAILY PO Last administered on 12/06/18 09:40; Start 11/29/18 at 09:00 Gabapentin (Neurontin) 100 mg TID PO Last administered on 12/06/18 09:40; Start 11/29/18 at 16:00 Home Med (Med Rec Complete!) ASDIRECTED XX ; Start 11/28/18 at 17:30; Stop 11/28/18 at 17:30; Status DC Lidocaine (Lidoderm Patch) 1 patch QHS TD Last administered on 12/05/18 20:54; Start 11/29/18 at 21:00 Lisinopril (Prinivil) 40 mg DAILY PO Last administered on 12/06/18 09:40; Start 11/29/18 at 09:00 Menthol/Methyl Salicylate (Bengay Cream) 1 dose BID TOP Last administered on 12/06/18 09:43; Start 12/03/18 at 21:00 Non-Formulary Medication ( See Comment Field Below ) REMOVE LIDODERM PATCH DAILY XX Last administered on 12/06/18 09:00; Start 11/30/18 at 09:00 Ondansetron HCl (Zofran) 4 mg Q6HP PRN PO NAUSEA; Start 11/28/18 at 17:00 Pantoprazole Sodium (Protonix) 40 mg DAILY PO Last administered on 12/06/18 09:39; Start 11/29/18 at 09:00 Senna (Senokot) 1 tab QHS PO Last administered on 12/05/18at 20:54; Start 11/28/18 at 21:00 Trazodone HCl (Desyrel) 25 mg QHS PO Last administered on 12/05/18at 20:54; Start 11/28/18 at 21:00 Vitamin D (Vitamin D) 2,000 units DAILY PO Last administered on 12/06/18at 09:40; Start 11/29/18 at 09:00 A-FIB/CHADSVASC A-FIB History Current/History of A-Fib/PAF?: No BRADY BUTLER MD December 06, 2018 10:07
[2018-12-06 14:00] VITALS: BP 148/65
[2018-12-06 20:00] VITALS: BP 146/67
[2018-12-06] MEDS: traZODone 25MG PER 1/2 TABLET PO SCH (21:26)
[2018-12-06] MEDS: ATORVASTATIN 20 MG TAB PO SCH (21:26)
[2018-12-06] MEDS: SENNA 8.6 MG TAB (SENOKOT) PO SCH (21:27)
[2018-12-06] MEDS: LIDOCAINE 5% (LIDODERM) PATCH TD SCH (21:27)
[2018-12-07 05:30] VITALS: BP 135/70
[2018-12-07 06:25] LABS: HEMATOCRIT 40.8 % (42.0-52.0); HEMOGLOBIN 13.3 g/dl (13.5-17.5); MEAN CORPUSCULAR HEMOGLOBIN 31.5 pg (27.0-33.0); MEAN CORPUSCULAR HGB CONC 32.6 g/dl (32.0-36.5); MEAN CORPUSCULAR VOLUME 96.7 fl (80.0-96.0); PLATELET COUNT, AUTOMATED 268 10^3/uL (150-450); RED BLOOD COUNT 4.22 10^6/uL (4.30-6.10); WHITE BLOOD COUNT 12.2 10^3/uL (4.0-10.0)
[2018-12-07] MEDS: **NOTE PATIENT COMMENT** MISC XX SCH (09:00)
[2018-12-07] MEDS: DOCUSATE SODIUM 100 MG CAP PO SCH ×3 (09:02→21:31)
[2018-12-07] MEDS: VITAMIN D 1,000 INTERNATIONAL UNITS TABLET PO SCH (09:02)
[2018-12-07] MEDS: FUROSEMIDE 20 MG TAB PO SCH (09:02)
[2018-12-07] MEDS: ACETAMINOPHEN TAB 650MG DOSE (2X325MG) PO PRN (09:02)
[2018-12-07] MEDS: ENOXAPARIN 40 MG/0.4 ML SYRINGE (J1650) SC SCH (09:02)
[2018-12-07] MEDS: ASPIRIN 325 MG TAB PO SCH (09:02)
[2018-12-07] MEDS: ANALGESIC BALM CRM 120 GM TOP SCH ×2 (09:03→21:31)
[2018-12-07] MEDS: FLUoxetine 20 MG CAP PO SCH (09:03)
[2018-12-07] MEDS: LISINOPRIL 40 MG TAB PO SCH (09:03)
[2018-12-07] MEDS: PANTOPRAZOLE 40MG TAB (PROTONIX) PO SCH (09:03)
[2018-12-07] MEDS: GABAPENTIN 100 MG CAP PO SCH ×3 (09:03→21:30)
[2018-12-07] MEDS: DULoxetine 30 MG CAP (CYMBALTA) PO SCH ×2 (09:03→21:30)
[2018-12-07 14:00] VITALS: BP 125/58
[2018-12-07 20:00] VITALS: BP 131/62
[2018-12-07] MEDS: SENNA 8.6 MG TAB (SENOKOT) PO SCH (21:30)
[2018-12-07] MEDS: ATORVASTATIN 20 MG TAB PO SCH (21:31)
[2018-12-07] MEDS: LIDOCAINE 5% (LIDODERM) PATCH TD SCH (21:31)
[2018-12-07] MEDS: traZODone 25MG PER 1/2 TABLET PO SCH (21:31)
[2018-12-08 06:00] VITALS: BP 136/63
[2018-12-08] MEDS: ENOXAPARIN 40 MG/0.4 ML SYRINGE (J1650) SC SCH (08:57)
[2018-12-08] MEDS: ASPIRIN 325 MG TAB PO SCH (08:58)
[2018-12-08] MEDS: PANTOPRAZOLE 40MG TAB (PROTONIX) PO SCH (08:58)
[2018-12-08] MEDS: LISINOPRIL 40 MG TAB PO SCH (08:58)
[2018-12-08] MEDS: VITAMIN D 1,000 INTERNATIONAL UNITS TABLET PO SCH (08:58)
[2018-12-08] MEDS: FUROSEMIDE 20 MG TAB PO SCH (08:58)
[2018-12-08] MEDS: FLUoxetine 20 MG CAP PO SCH (08:58)
[2018-12-08] MEDS: DOCUSATE SODIUM 100 MG CAP PO SCH ×3 (08:58→20:28)
[2018-12-08] MEDS: DULoxetine 30 MG CAP (CYMBALTA) PO SCH ×2 (08:58→20:28)
[2018-12-08] MEDS: GABAPENTIN 100 MG CAP PO SCH ×3 (08:58→20:28)
[2018-12-08] MEDS: **NOTE PATIENT COMMENT** MISC XX SCH (08:59)
[2018-12-08] MEDS: ANALGESIC BALM CRM 120 GM TOP SCH ×2 (09:02→20:33)
[2018-12-08 14:00] VITALS: BP 155/77
[2018-12-08 20:00] VITALS: BP 126/59
[2018-12-08] MEDS: traZODone 25MG PER 1/2 TABLET PO SCH (20:28)
[2018-12-08] MEDS: SENNA 8.6 MG TAB (SENOKOT) PO SCH (20:28)
[2018-12-08] MEDS: ATORVASTATIN 20 MG TAB PO SCH (20:28)
[2018-12-08] MEDS: LIDOCAINE 5% (LIDODERM) PATCH TD SCH (20:29)
[2018-12-09 06:00] VITALS: BP 140/67
[2018-12-09] MEDS: **NOTE PATIENT COMMENT** MISC XX SCH (09:00)
[2018-12-09] MEDS: VITAMIN D 1,000 INTERNATIONAL UNITS TABLET PO SCH (09:12)
[2018-12-09] MEDS: GABAPENTIN 100 MG CAP PO SCH ×3 (09:12→20:03)
[2018-12-09] MEDS: PANTOPRAZOLE 40MG TAB (PROTONIX) PO SCH (09:12)
[2018-12-09] MEDS: FUROSEMIDE 20 MG TAB PO SCH (09:12)
[2018-12-09] MEDS: LISINOPRIL 40 MG TAB PO SCH (09:12)
[2018-12-09] MEDS: DULoxetine 30 MG CAP (CYMBALTA) PO SCH ×2 (09:12→20:03)
[2018-12-09] MEDS: ASPIRIN 325 MG TAB PO SCH (09:12)
[2018-12-09] MEDS: FLUoxetine 20 MG CAP PO SCH (09:12)
[2018-12-09] MEDS: DOCUSATE SODIUM 100 MG CAP PO SCH ×3 (09:12→20:03)
[2018-12-09] MEDS: ANALGESIC BALM CRM 120 GM TOP SCH ×2 (09:13→20:03)
[2018-12-09] MEDS: ENOXAPARIN 40 MG/0.4 ML SYRINGE (J1650) SC SCH (09:13)
[2018-12-09 14:24] VITALS: BP 146/65
[2018-12-09 20:00] VITALS: BP 151/70
[2018-12-09] MEDS: ATORVASTATIN 20 MG TAB PO SCH (20:03)
[2018-12-09] MEDS: SENNA 8.6 MG TAB (SENOKOT) PO SCH (20:03)
[2018-12-09] MEDS: traZODone 25MG PER 1/2 TABLET PO SCH (20:03)
[2018-12-09] MEDS: LIDOCAINE 5% (LIDODERM) PATCH TD SCH (20:03)
[2018-12-10 06:00] VITALS: BP 134/70
[2018-12-10 06:24] LABS: HEMATOCRIT 41.3 % (42.0-52.0); HEMOGLOBIN 13.8 g/dl (13.5-17.5); MEAN CORPUSCULAR HGB CONC 33.4 g/dl (32.0-36.5); MEAN CORPUSCULAR VOLUME 95.8 fl (80.0-96.0); PLATELET COUNT, AUTOMATED 266 10^3/uL (150-450); RED BLOOD COUNT 4.31 10^6/uL (4.30-6.10); WHITE BLOOD COUNT 13.5 10^3/uL (4.0-10.0)
[2018-12-10] MEDS: FLUoxetine 20 MG CAP PO SCH (08:22)
[2018-12-10] MEDS: ENOXAPARIN 40 MG/0.4 ML SYRINGE (J1650) SC SCH (08:22)
[2018-12-10] MEDS: LISINOPRIL 40 MG TAB PO SCH (08:22)
[2018-12-10] MEDS: DULoxetine 30 MG CAP (CYMBALTA) PO SCH ×2 (08:22→21:04)
[2018-12-10] MEDS: DOCUSATE SODIUM 100 MG CAP PO SCH ×3 (08:22→21:04)
[2018-12-10] MEDS: PANTOPRAZOLE 40MG TAB (PROTONIX) PO SCH (08:22)
[2018-12-10] MEDS: ASPIRIN 325 MG TAB PO SCH (08:22)
[2018-12-10] MEDS: FUROSEMIDE 20 MG TAB PO SCH (08:22)
[2018-12-10] MEDS: VITAMIN D 1,000 INTERNATIONAL UNITS TABLET PO SCH (08:22)
[2018-12-10] MEDS: GABAPENTIN 100 MG CAP PO SCH ×3 (08:22→21:04)
[2018-12-10] MEDS: **NOTE PATIENT COMMENT** MISC XX SCH (08:23)
[2018-12-10] MEDS: ANALGESIC BALM CRM 120 GM TOP SCH ×2 (08:24→21:00)
--- NOTE | 2018-12-10 12:06 | IPNPDOC ---
PM&R Progress Note DATE OF SERVICE: December 10, 2018 Branch Customer Service Representative Progress Note Subjective: Patient reports his right foot hurts to put weight through and greed to let nursing acewrap his swollen ankle/ REVIEW OF SYSTEMS: The following is a completed review of systems and has been reviewed. Review of systems otherwise unremarkable. PAIN: Patient self reports right knee pain EYES: Negative for recent vision loss EARS, NOSE, & THROAT: +dysphagia (improving) +hearing loss CARDIOVASCULAR: denies chest pain or palpitations, +LOOP PULMONARY: Negative. Denies shortness of breath GASTROINTESTINAL: +constipation GENITOURINARY: Negative for dysuria MUSCULOSKELETAL: Right fibula fracture and right knee/hip pain NEUROLOGICAL: +stroke SKIN:no rash PSYCHIATRIC: Unremarkable All other review of systems found to be negative. PHYSICAL EXAMINATION: VITAL SIGNS: Please see below. GENERAL: Pleasant and cooperative. No acute distress. HEENT: PERRL. Extraocular movements intact. Clear conjunctiva CARDIOVASCULAR: Regular rate and rhythm. No murmurs, rubs, or gallops LUNGS: Clear to auscultation bilaterally. No wheezes. No rhonchi ABDOMEN: Soft, nontender, nondistended. Positive bowel sounds. Normal active bowel sounds NEUROLOGICAL: Alert and oriented times three. Cranial nerves II through XII grossly intact. Sensation grossly intact throughout all 4 limbs -no dysmetria, able to follow complex commands +dysarthria EXTREMITIES: 5\\5 strength bilateral upper extremities. 4\\5 strength right azam DF and EHL, 3-/5 right knee extension and 2/5 right hip flexion 5/5 strength in left lower extremity. Right knee: +TTP medial joint line, no varus/valgus instability, negative Kenny, +effusion (improving) +anterior knee pain with internal hip rotation right ankle +TTP insertion of achilles tendon onto calcaneus, + TTP dorsum of right foot SKIN: right foot and ankle ecchymosis, right D1 abrasion (from recent fall) ASSESSMENT:88-year-old M with past medical history of who presents status post multiple strokes PLAN: 1. 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 Neuro: s/p multiple strokes, c/u statin and ASA 325mg for secondary stroke prevention -LOOP recorder in place, +PFO -c/u fluoxetine for motor recovery 3. Cardiac: +PFO on recent ECHO -pmh HTN, c/u BP meds and f/u with storeroom keeper 4. Resp: encourage incentive spirometry 5. : pmh BPH and penile cancer, monitor PVRs, UA and Ucx negative 6. GI px: protonix, bowel meds 7. DVT ppx: c/u lovenox 8. Ortho: chronic low back pain with radiculopathy contributing to RLE weakness, right proximal fibular fracture will need outpatient ortho f/u -right knee pain with effusion likely from fibular fracture-improving -c/u gabapentin for nerve pain coming from back and lidoderm patch with ice for right knee swelling,increase Cymbalta to 30mg BID -right ankle swelling and ecchymosis likely dependent from proximal femur fracture, today suspect Achilles tendinopathy, ankle X-ray "Diffuse swelling. Achilles tendon is partially obscured. No fracture is seen." -given dorsal midfoot tenderness on exam today will order foot X-ray 8. Dispo: 12/18/18 to home with family Allergies Coded Allergies: Penicillins (Verified Allergy, Intermediate, RASH, 11/28/18) Vital Signs Vital Signs Date Time Temp Pulse Resp B/P (MAP) Pulse Ox O2 Delivery O2 Flow Rate FiO2 12/10/18 06:00 97.4 89 18 134/70 (91) 95 Laboratory Data CBC/BMP Laboratory Tests 12/10/18 06:00 Red Blood Count 4.31, Mean Corpuscular Volume 95.8, Mean Corpuscular Hemoglobin 32.0, Mean Corpuscular Hemoglobin Concent 33.4, Red Cell Distribution Width 12.7 Labs 24H Laboratory Tests 2 12/10/18 06:00: Nucleated Red Blood Cells % (auto) 0.0 Current Medications Current Medications Current Medications Acetaminophen (Tylenol Tab) 650 mg Q6HP PRN PO PAIN / FEVER Last administered on 12/07/18at 09:02; Start 11/28/18 at 17:15 Al Hydrox/Mg Hydrox/Simethicone (Mylanta) 30 ml Q4HP PRN PO DYSPEPSIA; Start 11/28/18 at 17:00 Aspirin (Aspirin) 325 mg DAILY PO Last administered on 12/10/18at 08:22; Start 11/29/18 at 09:00 Atorvastatin Calcium (Lipitor) 40 mg QHS PO Last administered on 12/09/18 20:03; Start 11/28/18 at 21:00 Bisacodyl (Dulcolax Suppository) 10 mg DAILYPRN PRN [place]; Start 11/28/18 at 17:00 Docusate Sodium (Colace) 100 mg BID PO Last administered on 11/29/18 09:59; Start 11/28/18 at 21:00; Stop 11/29/18 at 16:15; Status DC Docusate Sodium (Colace) 100 mg TID PO Last administered on 12/10/18 08:22; Start 11/29/18 at 16:00 Duloxetine HCl (Cymbalta) 30 mg BID PO Last administered on 12/10/18 08:22; Start 12/03/18 at 21:00 Duloxetine HCl (Cymbalta) 30 mg DAILY PO Last administered on 12/03/18 08:40; Start 11/29/18 at 09:00; Stop 12/03/18 at 14:17; Status DC Enoxaparin Sodium (Lovenox) 40 mg DAILY SC Last administered on 12/10/18 08:22; Start 11/29/18 at 09:00 Fluoxetine HCl (PROzac) 20 mg DAILY PO Last administered on 12/10/18 08:22; Start 11/29/18 at 09:00 Furosemide (Lasix) 20 mg DAILY PO Last administered on 12/10/18 08:22; Start 11/29/18 at 09:00 Gabapentin (Neurontin) 100 mg TID PO Last administered on 12/10/18 08:22; Start 11/29/18 at 16:00 Home Med (Med Rec Complete!) ASDIRECTED XX ; Start 11/28/18 at 17:30; Stop 11/28/18 at 17:30; Status DC Lidocaine (Lidoderm Patch) 1 patch QHS TD Last administered on 12/09/18 20:03; Start 11/29/18 at 21:00 Lisinopril (Prinivil) 40 mg DAILY PO Last administered on 12/10/18 08:22; Start 11/29/18 at 09:00 Menthol/Methyl Salicylate (Bengay Cream) 1 dose BID TOP Last administered on 12/10/18 08:24; Start 12/03/18 at 21:00 Non-Formulary Medication ( See Comment Field Below ) REMOVE LIDODERM PATCH DAILY XX Last administered on 12/10/18 08:23; Start 11/30/18 at 09:00 Ondansetron HCl (Zofran) 4 mg Q6HP PRN PO NAUSEA; Start 11/28/18 at 17:00 Pantoprazole Sodium (Protonix) 40 mg DAILY PO Last administered on 12/10/18 08:22; Start 11/29/18 at 09:00 Senna (Senokot) 1 tab QHS PO Last administered on 12/09/18 20:03; Start 11/28/18 at 21:00 Trazodone HCl (Desyrel) 25 mg QHS PO Last administered on 12/09/18 20:03; Start 11/28/18 at 21:00 Vitamin D (Vitamin D) 2,000 units DAILY PO Last administered on 12/10/18 08:22; Start 11/29/18 at 09:00 A-FIB/CHADSVASC A-FIB History Current/History of A-Fib/PAF?: No BRADY BUTLER MD December 10, 2018 12:06
[2018-12-10 14:00] VITALS: BP 114/59
--- NOTE | 2018-12-10 16:32 | REP ---
RIGHT FOOT, FOUR VIEWS: HISTORY: Rule out fracture. There is no acute fracture or dislocation. There is narrowing of the first metatarsal phalangeal joint space. The remaining joint spaces are normal in appearance. The bony structure is osteopenic. IMPRESSION:There is no acute fracture or dislocation. Electronically Signed by Phu Giraldo MD 12/10/2018 04:33 P
[2018-12-10 20:00] VITALS: BP 140/67
[2018-12-10] MEDS: ATORVASTATIN 20 MG TAB PO SCH (21:04)
[2018-12-10] MEDS: SENNA 8.6 MG TAB (SENOKOT) PO SCH (21:04)
[2018-12-10] MEDS: LIDOCAINE 5% (LIDODERM) PATCH TD SCH (21:04)
[2018-12-10] MEDS: traZODone 25MG PER 1/2 TABLET PO SCH (21:04)
[2018-12-11 06:00] VITALS: BP 159/79
[2018-12-11 06:39] LABS: BASO % 0.3 % (0.0-1.0); EOS # 0.1 10^3/uL (0.0-0.50); EOS % 1.3 % (0.0-3.0); HEMATOCRIT 42.7 % (42.0-52.0); HEMOGLOBIN 13.9 g/dl (13.5-17.5); LYMPH # 2.7 10^3/uL (1.5-4.5); LYMPH % 25.9 % (24.0-44.0); MEAN CORPUSCULAR HEMOGLOBIN 31.4 pg (27.0-33.0); MEAN CORPUSCULAR HGB CONC 32.6 g/dl (32.0-36.5); MEAN CORPUSCULAR VOLUME 96.4 fl (80.0-96.0); MONO # 1.3 10^3/uL (0.0-0.8); MONO % 12.7 % (0.0-5.0); NEUTROPHILS # 6.2 10^3/uL (1.8-7.7); NEUTROPHILS % 59.4 % (36.0-66.0); PLATELET COUNT, AUTOMATED 281 10^3/uL (150-450); RED BLOOD COUNT 4.43 10^6/uL (4.30-6.10); WHITE BLOOD COUNT 10.4 10^3/uL (4.0-10.0)
[2018-12-11 07:02] LABS: BLOOD UREA NITROGEN 22 MG/DL (7-18); CALCIUM LEVEL 9.6 MG/DL (8.8-10.2); CARBON DIOXIDE LEVEL 32 MEQ/L (21-32); CHLORIDE LEVEL 101 MEQ/L (98-107); CREATININE FOR GFR 0.88 MG/DL (0.70-1.30); GLOMERULAR FILTRATION RATE > 60.0 (>35); GLUCOSE, FASTING 98 MG/DL (70-100); POTASSIUM SERUM 4.2 MEQ/L (3.5-5.1); SODIUM LEVEL 137 MEQ/L (136-145)
[2018-12-11] MEDS: LISINOPRIL 40 MG TAB PO SCH (07:38)
[2018-12-11] MEDS: VITAMIN D 1,000 INTERNATIONAL UNITS TABLET PO SCH (07:38)
[2018-12-11] MEDS: ASPIRIN 325 MG TAB PO SCH (07:38)
[2018-12-11] MEDS: ENOXAPARIN 40 MG/0.4 ML SYRINGE (J1650) SC SCH (07:38)
[2018-12-11] MEDS: GABAPENTIN 100 MG CAP PO SCH ×3 (07:38→20:49)
[2018-12-11] MEDS: DOCUSATE SODIUM 100 MG CAP PO SCH ×3 (07:38→20:49)
[2018-12-11] MEDS: FLUoxetine 20 MG CAP PO SCH (07:38)
[2018-12-11] MEDS: DULoxetine 30 MG CAP (CYMBALTA) PO SCH ×2 (07:39→20:49)
[2018-12-11] MEDS: PANTOPRAZOLE 40MG TAB (PROTONIX) PO SCH (07:39)
[2018-12-11] MEDS: FUROSEMIDE 20 MG TAB PO SCH (07:39)
[2018-12-11] MEDS: ANALGESIC BALM CRM 120 GM TOP SCH ×2 (07:41→20:50)
[2018-12-11] MEDS: **NOTE PATIENT COMMENT** MISC XX SCH (07:41)
[2018-12-11 14:00] VITALS: BP 119/60
--- NOTE | 2018-12-11 17:33 | IPNPDOC ---
PM&R Progress Note DATE OF SERVICE: December 11, 2018 Assembler Carbon Brushes Progress Note Subjective: Patient reports his right foot feels a little better. REVIEW OF SYSTEMS: The following is a completed review of systems and has been reviewed. Review of systems otherwise unremarkable. PAIN: Patient self reports right knee pain EYES: Negative for recent vision loss EARS, NOSE, & THROAT: +dysphagia (improving) +hearing loss CARDIOVASCULAR: denies chest pain or palpitations, +LOOP PULMONARY: Negative. Denies shortness of breath GASTROINTESTINAL: +constipation GENITOURINARY: Negative for dysuria MUSCULOSKELETAL: Right fibula fracture and right knee/hip pain NEUROLOGICAL: +stroke SKIN:no rash PSYCHIATRIC: Unremarkable All other review of systems found to be negative. PHYSICAL EXAMINATION: VITAL SIGNS: Please see below. GENERAL: Pleasant and cooperative. No acute distress. HEENT: PERRL. Extraocular movements intact. Clear conjunctiva CARDIOVASCULAR: Regular rate and rhythm. No murmurs, rubs, or gallops LUNGS: Clear to auscultation bilaterally. No wheezes. No rhonchi ABDOMEN: Soft, nontender, nondistended. Positive bowel sounds. Normal active bowel sounds NEUROLOGICAL: Alert and oriented times three. Cranial nerves II through XII grossly intact. Sensation grossly intact throughout all 4 limbs -no dysmetria, able to follow complex commands +dysarthria EXTREMITIES: 5\\5 strength bilateral upper extremities. 4\\5 strength right azam DF and EHL, 3-/5 right knee extension and 2/5 right hip flexion 5/5 strength in left lower extremity. Right knee: +TTP medial joint line, no varus/valgus instability, negative Kenny, +effusion (improving) +anterior knee pain with internal hip rotation right ankle +TTP insertion of achilles tendon onto calcaneus, + TTP dorsum of right foot SKIN: right foot and ankle ecchymosis, right D1 abrasion (from recent fall) ASSESSMENT:88-year-old M with past medical history of who presents status post multiple strokes PLAN: 1. 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 Neuro: s/p multiple strokes, c/u statin and ASA 325mg for secondary stroke prevention -LOOP recorder in place, +PFO -c/u fluoxetine for motor recovery 3. Cardiac: +PFO on recent ECHO -pmh HTN, c/u BP meds and f/u with acetone recovery worker 4. Resp: encourage incentive spirometry 5. : pmh BPH and penile cancer, monitor PVRs, UA and Ucx negative 6. GI px: protonix, bowel meds 7. DVT ppx: c/u lovenox 8. Ortho: chronic low back pain with radiculopathy contributing to RLE weakness, right proximal fibular fracture will need outpatient ortho f/u -right knee pain with effusion likely from fibular fracture-improving -c/u gabapentin for nerve pain coming from back and lidoderm patch with ice for right knee swelling,increase Cymbalta to 30mg BID -right ankle swelling and ecchymosis likely dependent from proximal femur fracture, today suspect Achilles tendinopathy, ankle X-ray "Diffuse swelling. Achilles tendon is partially obscured. No fracture is seen." -given dorsal midfoot tenderness, foot X-ray negative for fracture 8. Dispo: 12/18/18 to home with family Allergies Coded Allergies: Penicillins (Verified Allergy, Intermediate, RASH, 11/28/18) Vital Signs Vital Signs Date Time Temp Pulse Resp B/P (MAP) Pulse Ox O2 Delivery O2 Flow Rate FiO2 12/11/18 14:00 97.8 88 18 119/60 (79) 94 Laboratory Data CBC/BMP Laboratory Tests 12/11/18 06:25 Red Blood Count 4.43, Mean Corpuscular Volume 96.4 H, Mean Corpuscular Hemoglobin 31.4, Mean Corpuscular Hemoglobin Concent 32.6, Red Cell Distribution Width 12.7, Neutrophils (%) (Auto) 59.4, Lymphocytes (%) (Auto) 25.9, Monocytes (%) (Auto) 12.7 H, Eosinophils (%) (Auto) 1.3, Basophils (%) (Auto) 0.3, Neutrophils # (Auto) 6.2, Lymphocytes # (Auto) 2.7, Monocytes # (Auto) 1.3 H, Eosinophils # (Auto) 0.1, Basophils # (Auto) 0.0, Calcium Level 9.6 Labs 24H Laboratory Tests 2 12/11/18 06:25: Immature Granulocyte % (Auto) 0.4, White Blood Count 10.4H, Red Blood Count 4.43, Hemoglobin 13.9, Hematocrit 42.7, Mean Corpuscular Volume 96.4H, Mean Corpuscular Hemoglobin 31.4, Mean Corpuscular Hemoglobin Concent 32.6, Red Cell Distribution Width 12.7, Platelet Count 281, Neutrophils (%) (Auto) 59.4, Lymphocytes (%) (Auto) 25.9, Monocytes (%) (Auto) 12.7H, Eosinophils (%) (Auto) 1.3, Basophils (%) (Auto) 0.3, Neutrophils # (Auto) 6.2, Lymphocytes # (Auto) 2.7, Monocytes # (Auto) 1.3H, Eosinophils # (Auto) 0.1, Basophils # (Auto) 0.0, Nucleated Red Blood Cells % (auto) 0.0, Anion Gap 4L, Glomerular Filtration Rate > 60.0, Blood Urea Nitrogen 22H, Creatinine 0.88, Sodium Level 137, Potassium Level 4.2, Chloride Level 101, Carbon Dioxide Level 32, Calcium Level 9.6 Current Medications Current Medications Current Medications Acetaminophen (Tylenol Tab) 650 mg Q6HP PRN PO PAIN / FEVER Last administered on 12/07/18at 09:02; Start 11/28/18 at 17:15 Al Hydrox/Mg Hydrox/Simethicone (Mylanta) 30 ml Q4HP PRN PO DYSPEPSIA; Start 11/28/18 at 17:00 Aspirin (Aspirin) 325 mg DAILY PO Last administered on 12/11/18at 07:38; Start 11/29/18 at 09:00 Atorvastatin Calcium (Lipitor) 40 mg QHS PO Last administered on 12/10/18at 21:04; Start 11/28/18 at 21:00 Bisacodyl (Dulcolax Suppository) 10 mg DAILYPRN PRN [place] CONSTIPATION; Start 11/28/18 at 17:00 Docusate Sodium (Colace) 100 mg BID PO Last administered on 11/29/18at 09:59; Start 11/28/18 at 21:00; Stop 11/29/18 at 16:15; Status DC Docusate Sodium (Colace) 100 mg TID PO Last administered on 12/11/18at 16:47; Start 11/29/18 at 16:00 Duloxetine HCl (Cymbalta) 30 mg BID PO Last administered on 12/11/18at 07:39; Start 12/03/18 at 21:00 Duloxetine HCl (Cymbalta) 30 mg DAILY PO Last administered on 12/03/18 08:40; Start 11/29/18 at 09:00; Stop 12/03/18 at 14:17; Status DC Enoxaparin Sodium (Lovenox) 40 mg DAILY SC Last administered on 12/11/18 07:38; Start 11/29/18 at 09:00 Fluoxetine HCl (PROzac) 20 mg DAILY PO Last administered on 12/11/18 07:38; Start 11/29/18 at 09:00 Furosemide (Lasix) 20 mg DAILY PO Last administered on 12/11/18 07:39; Start 11/29/18 at 09:00 Gabapentin (Neurontin) 100 mg TID PO Last administered on 12/11/18 16:47; Start 11/29/18 at 16:00 Home Med (Med Rec Complete!) ASDIRECTED XX ; Start 11/28/18 at 17:30; Stop 11/28/18 at 17:30; Status DC Lidocaine (Lidoderm Patch) 1 patch QHS TD Last administered on 12/10/18 21:04; Start 11/29/18 at 21:00 Lisinopril (Prinivil) 40 mg DAILY PO Last administered on 12/11/18 07:38; Start 11/29/18 at 09:00 Menthol/Methyl Salicylate (Bengay Cream) 1 dose BID TOP Last administered on 12/11/18 07:41; Start 12/03/18 at 21:00 Non-Formulary Medication ( See Comment Field Below ) REMOVE LIDODERM PATCH DAILY XX Last administered on 12/11/18 07:41; Start 11/30/18 at 09:00 Ondansetron HCl (Zofran) 4 mg Q6HP PRN PO NAUSEA; Start 11/28/18 at 17:00 Pantoprazole Sodium (Protonix) 40 mg DAILY PO Last administered on 12/11/18 07:39; Start 11/29/18 at 09:00 Senna (Senokot) 1 tab QHS PO Last administered on 12/10/18 21:04; Start 11/28/18 at 21:00 Trazodone HCl (Desyrel) 25 mg QHS PO Last administered on 5/13/19at 21:04; Start 11/28/18 at 21:00 Vitamin D (Vitamin D) 2,000 units DAILY PO Last administered on 12/11/18at 07:38; Start 11/29/18 at 09:00 A-FIB/CHADSVASC A-FIB History Current/History of A-Fib/PAF?: No BRADY BUTLER MD December 11, 2018 17:33
[2018-12-11] MEDS: BISACODYL 10 MG SUPP PR PRN (18:17)
[2018-12-11 20:00] VITALS: BP 115/56
[2018-12-11] MEDS: ATORVASTATIN 20 MG TAB PO SCH (20:49)
[2018-12-11] MEDS: LIDOCAINE 5% (LIDODERM) PATCH TD SCH (20:49)
[2018-12-11] MEDS: SENNA 8.6 MG TAB (SENOKOT) PO SCH (20:49)
[2018-12-11] MEDS: traZODone 25MG PER 1/2 TABLET PO SCH (20:49)
[2018-12-12] MEDS: ASPIRIN 325 MG TAB PO SCH (07:37)
[2018-12-12] MEDS: ENOXAPARIN 40 MG/0.4 ML SYRINGE (J1650) SC SCH (07:37)
[2018-12-12] MEDS: GABAPENTIN 100 MG CAP PO SCH ×3 (07:37→21:12)
[2018-12-12] MEDS: FUROSEMIDE 20 MG TAB PO SCH (07:37)
[2018-12-12] MEDS: VITAMIN D 1,000 INTERNATIONAL UNITS TABLET PO SCH (07:37)
[2018-12-12] MEDS: DULoxetine 30 MG CAP (CYMBALTA) PO SCH ×2 (07:37→21:12)
[2018-12-12] MEDS: PANTOPRAZOLE 40MG TAB (PROTONIX) PO SCH (07:37)
[2018-12-12] MEDS: DOCUSATE SODIUM 100 MG CAP PO SCH ×3 (07:37→21:12)
[2018-12-12] MEDS: FLUoxetine 20 MG CAP PO SCH (07:37)
[2018-12-12] MEDS: LISINOPRIL 40 MG TAB PO SCH (07:37)
[2018-12-12] MEDS: ANALGESIC BALM CRM 120 GM TOP SCH ×2 (07:38→21:13)
[2018-12-12] MEDS: **NOTE PATIENT COMMENT** MISC XX SCH (07:38)
[2018-12-12 14:00] VITALS: BP 127/61
[2018-12-12 20:00] VITALS: BP 134/68
[2018-12-12] MEDS: ATORVASTATIN 20 MG TAB PO SCH (21:12)
[2018-12-12] MEDS: LIDOCAINE 5% (LIDODERM) PATCH TD SCH (21:12)
[2018-12-12] MEDS: SENNA 8.6 MG TAB (SENOKOT) PO SCH (21:12)
[2018-12-12] MEDS: traZODone 25MG PER 1/2 TABLET PO SCH (21:12)
[2018-12-13 06:00] VITALS: BP 119/56
[2018-12-13 06:44] LABS: BASO % 0.4 % (0.0-1.0); EOS # 0.2 10^3/uL (0.0-0.50); EOS % 1.5 % (0.0-3.0); HEMATOCRIT 39.2 % (42.0-52.0); HEMOGLOBIN 12.9 g/dl (13.5-17.5); LYMPH # 1.9 10^3/uL (1.5-4.5); LYMPH % 18.7 % (24.0-44.0); MEAN CORPUSCULAR HEMOGLOBIN 30.9 pg (27.0-33.0); MEAN CORPUSCULAR HGB CONC 32.9 g/dl (32.0-36.5); MEAN CORPUSCULAR VOLUME 93.8 fl (80.0-96.0); MONO # 1.1 10^3/uL (0.0-0.8); MONO % 10.6 % (0.0-5.0); NEUTROPHILS # 6.9 10^3/uL (1.8-7.7); NEUTROPHILS % 68.5 % (36.0-66.0); PLATELET COUNT, AUTOMATED 251 10^3/uL (150-450); RED BLOOD COUNT 4.18 10^6/uL (4.30-6.10)
[2018-12-13] MEDS: DULoxetine 30 MG CAP (CYMBALTA) PO SCH ×2 (08:38→21:02)
[2018-12-13] MEDS: GABAPENTIN 100 MG CAP PO SCH ×3 (08:38→21:02)
[2018-12-13] MEDS: FUROSEMIDE 20 MG TAB PO SCH (08:38)
[2018-12-13] MEDS: PANTOPRAZOLE 40MG TAB (PROTONIX) PO SCH (08:38)
[2018-12-13] MEDS: ENOXAPARIN 40 MG/0.4 ML SYRINGE (J1650) SC SCH (08:38)
[2018-12-13] MEDS: ASPIRIN 325 MG TAB PO SCH (08:38)
[2018-12-13] MEDS: VITAMIN D 1,000 INTERNATIONAL UNITS TABLET PO SCH (08:38)
[2018-12-13] MEDS: FLUoxetine 20 MG CAP PO SCH (08:39)
[2018-12-13] MEDS: ANALGESIC BALM CRM 120 GM TOP SCH ×2 (08:39→21:02)
[2018-12-13] MEDS: LISINOPRIL 40 MG TAB PO SCH (08:39)
[2018-12-13] MEDS: DOCUSATE SODIUM 100 MG CAP PO SCH ×3 (08:39→21:02)
[2018-12-13] MEDS: **NOTE PATIENT COMMENT** MISC XX SCH (08:39)
--- NOTE | 2018-12-13 10:20 | IPNPDOC ---
PM&R Progress Note DATE OF SERVICE: December 12, 2018 Senior Mechanical Estimator Progress Note Subjective: Patient seen walking in therapy, able to put weight through his right foot. One episode of buckling while working on stairs. REVIEW OF SYSTEMS: The following is a completed review of systems and has been reviewed. Review of systems otherwise unremarkable. PAIN: Patient self reports right knee pain EYES: Negative for recent vision loss EARS, NOSE, & THROAT: +dysphagia (improving) +hearing loss CARDIOVASCULAR: denies chest pain or palpitations, +LOOP PULMONARY: Negative. Denies shortness of breath GASTROINTESTINAL: +constipation GENITOURINARY: Negative for dysuria MUSCULOSKELETAL: Right fibula fracture and right knee/hip pain NEUROLOGICAL: +stroke SKIN:no rash PSYCHIATRIC: Unremarkable All other review of systems found to be negative. PHYSICAL EXAMINATION: VITAL SIGNS: Please see below. GENERAL: Pleasant and cooperative. No acute distress. HEENT: PERRL. Extraocular movements intact. Clear conjunctiva CARDIOVASCULAR: Regular rate and rhythm. No murmurs, rubs, or gallops LUNGS: Clear to auscultation bilaterally. No wheezes. No rhonchi ABDOMEN: Soft, nontender, nondistended. Positive bowel sounds. Normal active bowel sounds NEUROLOGICAL: Alert and oriented times three. Cranial nerves II through XII grossly intact. Sensation grossly intact throughout all 4 limbs -no dysmetria, able to follow complex commands +dysarthria EXTREMITIES: 5\\5 strength bilateral upper extremities. 4\\5 strength right azam DF and EHL, 3-/5 right knee extension and 2/5 right hip flexion 5/5 strength in left lower extremity. Right knee: +TTP medial joint line, no varus/valgus instability, negative Kenny, +effusion (improving) +anterior knee pain with internal hip rotation right ankle +TTP insertion of achilles tendon onto calcaneus, + TTP dorsum of right foot SKIN: right foot and ankle ecchymosis, right D1 abrasion (from recent fall) ASSESSMENT:88-year-old M with past medical history of who presents status post multiple strokes PLAN: 1. 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 Neuro: s/p multiple strokes, c/u statin and ASA 325mg for secondary stroke prevention -LOOP recorder in place, +PFO -c/u fluoxetine for motor recovery 3. Cardiac: +PFO on recent ECHO -pmh HTN, c/u BP meds and f/u with metallurgy laboratory technician 4. Resp: encourage incentive spirometry 5. : pmh BPH and penile cancer, monitor PVRs, UA and Ucx negative 6. GI px: protonix, bowel meds 7. DVT ppx: c/u lovenox 8. Ortho: chronic low back pain with radiculopathy contributing to RLE weakness, right proximal fibular fracture will need outpatient ortho f/u -right knee pain with effusion likely from fibular fracture-improving -c/u gabapentin for nerve pain coming from back and lidoderm patch with ice for right knee swelling (improved) , c/u Cymbalta to 30mg BID -right ankle swelling and ecchymosis likely dependent from proximal femur fracture, today suspect Achilles tendinopathy, ankle X-ray "Diffuse swelling. Achilles tendon is partially obscured. No fracture is seen." -given dorsal midfoot tenderness, foot X-ray negative for fracture 8. Dispo: 12/18/18 to home with family Allergies Coded Allergies: Penicillins (Verified Allergy, Intermediate, RASH, 11/28/18) Vital Signs Vital Signs Date Time Temp Pulse Resp B/P (MAP) Pulse Ox O2 Delivery O2 Flow Rate FiO2 12/13/18 06:00 97.3 89 18 119/56 (77) 93 Laboratory Data CBC/BMP Laboratory Tests 12/13/18 06:33 Red Blood Count 4.18 L, Mean Corpuscular Volume 93.8, Mean Corpuscular Hemoglobin 30.9, Mean Corpuscular Hemoglobin Concent 32.9, Red Cell Distribution Width 12.8, Neutrophils (%) (Auto) 68.5 H, Lymphocytes (%) (Auto) 18.7 L, Monocytes (%) (Auto) 10.6 H, Eosinophils (%) (Auto) 1.5, Basophils (%) (Auto) 0.4, Neutrophils # (Auto) 6.9, Lymphocytes # (Auto) 1.9, Monocytes # (Auto) 1.1 H, Eosinophils # (Auto) 0.2, Basophils # (Auto) 0.0 Labs 24H Laboratory Tests 2 12/13/18 06:33: Immature Granulocyte % (Auto) 0.3, White Blood Count 10.0, Red Blood Count 4.18L, Hemoglobin 12.9L, Hematocrit 39.2L, Mean Corpuscular Volume 93.8, Mean Corpuscular Hemoglobin 30.9, Mean Corpuscular Hemoglobin Concent 32.9, Red Cell Distribution Width 12.8, Platelet Count 251, Neutrophils (%) (Auto) 68.5H, Lymphocytes (%) (Auto) 18.7L, Monocytes (%) (Auto) 10.6H, Eosinophils (%) (Auto) 1.5, Basophils (%) (Auto) 0.4, Neutrophils # (Auto) 6.9, Lymphocytes # (Auto) 1.9, Monocytes # (Auto) 1.1H, Eosinophils # (Auto) 0.2, Basophils # (Auto) 0.0, Nucleated Red Blood Cells % (auto) 0.0 Current Medications Current Medications Current Medications Acetaminophen (Tylenol Tab) 650 mg Q6HP PRN PO PAIN / FEVER Last administered on 12/07/18at 09:02; Start 11/28/18 at 17:15 Al Hydrox/Mg Hydrox/Simethicone (Mylanta) 30 ml Q4HP PRN PO DYSPEPSIA; Start 11/28/18 at 17:00 Aspirin (Aspirin) 325 mg DAILY PO Last administered on 12/13/18at 08:38; Start 11/29/18 at 09:00 Atorvastatin Calcium (Lipitor) 40 mg QHS PO Last administered on 12/12/18at 21:12; Start 11/28/18 at 21:00 Bisacodyl (Dulcolax Suppository) 10 mg DAILYPRN PRN [place] CONSTIPATION Last administered on 12/11/18at 18:17; Start 11/28/18 at 17:00 Docusate Sodium (Colace) 100 mg BID PO Last administered on 11/29/18at 09:59; St art 11/28/18 at 21:00; Stop 11/29/18 at 16:15; Status DC Docusate Sodium (Colace) 100 mg TID PO Last administered on 12/13/18at 08:39; Start 11/29/18 at 16:00 Duloxetine HCl (Cymbalta) 30 mg BID PO Last administered on 12/13/18at 08:38; Start 12/03/18 at 21:00 Duloxetine HCl (Cymbalta) 30 mg DAILY PO Last administered on 12/03/18 08:40; Start 11/29/18 at 09:00; Stop 12/03/18 at 14:17; Status DC Enoxaparin Sodium (Lovenox) 40 mg DAILY SC Last administered on 12/13/18 08:38; Start 11/29/18 at 09:00 Fluoxetine HCl (PROzac) 20 mg DAILY PO Last administered on 12/13/18 08:39; Start 11/29/18 at 09:00 Furosemide (Lasix) 20 mg DAILY PO Last administered on 12/13/18 08:38; Start 11/29/18 at 09:00 Gabapentin (Neurontin) 100 mg TID PO Last administered on 12/13/18 08:38; Start 11/29/18 at 16:00 Home Med (Med Rec Complete!) ASDIRECTED XX ; Start 11/28/18 at 17:30; Stop 11/28/18 at 17:30; Status DC Lidocaine (Lidoderm Patch) 1 patch QHS TD Last administered on 12/12/18 21:12; Start 11/29/18 at 21:00 Lisinopril (Prinivil) 40 mg DAILY PO Last administered on 12/13/18 08:39; Start 11/29/18 at 09:00 Menthol/Methyl Salicylate (Bengay Cream) 1 dose BID TOP Last administered on 12/13/18 08:39; Start 12/03/18 at 21:00 Non-Formulary Medication ( See Comment Field Below ) REMOVE LIDODERM PATCH D AILY XX Last administered on 12/13/18 08:39; Start 11/30/18 at 09:00 Ondansetron HCl (Zofran) 4 mg Q6HP PRN PO NAUSEA; Start 11/28/18 at 17:00 Pantoprazole Sodium (Protonix) 40 mg DAILY PO Last administered on 12/13/18 08:38; Start 11/29/18 at 09:00 Senna (Senokot) 1 tab QHS PO Last administered on 12/12/18 21:12; Start 11/28/18 at 21:00 Trazodone HCl (Desyrel) 25 mg QHS PO Last administered on 12/12/18 21:12; Start 11/28/18 at 21:00 Vitamin D (Vitamin D) 2,000 units DAILY PO Last administered on 12/13/18at 08:38; Start 11/29/18 at 09:00 A-FIB/CHADSVASC A-FIB History Current/History of A-Fib/PAF?: No BRADY BUTLER MD December 13, 2018 10:20
--- NOTE | 2018-12-13 10:20 | IPNPDOC ---
PM&R Progress Note DATE OF SERVICE: December 13, 2018 Store Clerk Progress Note Subjective: Patient seen in his room reporting he feels stronger and that his foot pain is getting better. REVIEW OF SYSTEMS: The following is a completed review of systems and has been reviewed. Review of systems otherwise unremarkable. PAIN: Patient self reports right knee pain EYES: Negative for recent vision loss EARS, NOSE, & THROAT: +dysphagia (improving) +hearing loss CARDIOVASCULAR: denies chest pain or palpitations, +LOOP PULMONARY: Negative. Denies shortness of breath GASTROINTESTINAL: +constipation GENITOURINARY: Negative for dysuria MUSCULOSKELETAL: Right fibula fracture and right knee/hip pain NEUROLOGICAL: +stroke SKIN:no rash PSYCHIATRIC: Unremarkable All other review of systems found to be negative. PHYSICAL EXAMINATION: VITAL SIGNS: Please see below. GENERAL: Pleasant and cooperative. No acute distress. HEENT: PERRL. Extraocular movements intact. Clear conjunctiva CARDIOVASCULAR: Regular rate and rhythm. No murmurs, rubs, or gallops LUNGS: Clear to auscultation bilaterally. No wheezes. No rhonchi ABDOMEN: Soft, nontender, nondistended. Positive bowel sounds. Normal active bowel sounds NEUROLOGICAL: Alert and oriented times three. Cranial nerves II through XII grossly intact. Sensation grossly intact throughout all 4 limbs -no dysmetria, able to follow complex commands +dysarthria EXTREMITIES: 5\\5 strength bilateral upper extremities. 4\\5 strength right azam DF and EHL, 3-/5 right knee extension and 2/5 right hip flexion 5/5 strength in left lower extremity. Right knee: +TTP medial joint line, no varus/valgus instability, negative Kenny, +effusion (improving) +anterior knee pain with internal hip rotation right ankle +TTP insertion of achilles tendon onto calcaneus, + TTP dorsum of right foot SKIN: right foot and ankle ecchymosis, right D1 abrasion (from recent fall) ASSESSMENT:88-year-old M with past medical history of who presents status post multiple strokes PLAN: 1. rehab: PT, OT, CRUISE CONS[employer]ANT with dysphagia, able to ambulate further with RW and negotiate steps, diet upgraded to regular, family training being planned 2. Neuro: s/p multiple strokes, c/u statin and ASA 325mg for secondary stroke prevention -LOOP recorder in place, +PFO -c/u fluoxetine for motor recovery 3. Cardiac: +PFO on recent ECHO -pmh HTN, c/u BP meds and f/u with casing splitter 4. Resp: encourage incentive spirometry 5. : pmh BPH and penile cancer, monitor PVRs, UA and Ucx negative 6. GI px: protonix, bowel meds 7. DVT ppx: c/u lovenox 8. Ortho: chronic low back pain with radiculopathy contributing to RLE weakness, right proximal fibular fracture will need outpatient ortho f/u -right knee pain with effusion likely from fibular fracture-improving -c/u gabapentin for nerve pain coming from back and lidoderm patch with ice for right knee swelling (improved) , c/u Cymbalta to 30mg BID -right ankle swelling and ecchymosis likely dependent from proximal femur fracture, today suspect Achilles tendinopathy, ankle X-ray "Diffuse swelling. Achilles tendon is partially obscured. No fracture is seen." -given dorsal midfoot tenderness, foot X-ray negative for fracture 8. Dispo: 12/18/18 to home with family Allergies Coded Allergies: Penicillins (Verified Allergy, Intermediate, RASH, 11/28/18) Vital Signs Vital Signs Date Time Temp Pulse Resp B/P (MAP) Pulse Ox O2 Delivery O2 Flow Rate FiO2 12/13/18 06:00 97.3 89 18 119/56 (77) 93 Laboratory Data CBC/BMP Laboratory Tests 12/13/18 06:33 Red Blood Count 4.18 L, Mean Corpuscular Volume 93.8, Mean Corpuscular Hemoglobin 30.9, Mean Corpuscular Hemoglobin Concent 32.9, Red Cell Distribution Width 12.8, Neutrophils (%) (Auto) 68.5 H, Lymphocytes (%) (Auto) 18.7 L, Monocytes (%) (Auto) 10.6 H, Eosinophils (%) (Auto) 1.5, Basophils (%) (Auto) 0.4, Neutrophils # (Auto) 6.9, Lymphocytes # (Auto) 1.9, Monocytes # (Auto) 1.1 H, Eosinophils # (Auto) 0.2, Basophils # (Auto) 0.0 Labs 24H Laboratory Tests 2 12/13/18 06:33: Immature Granulocyte % (Auto) 0.3, White Blood Count 10.0, Red Blood Count 4.18L, Hemoglobin 12.9L, Hematocrit 39.2L, Mean Corpuscular Volume 93.8, Mean Corpuscular Hemoglobin 30.9, Mean Corpuscular Hemoglobin Concent 32.9, Red Cell Distribution Width 12.8, Platelet Count 251, Neutrophils (%) (Auto) 68.5H, Lymphocytes (%) (Auto) 18.7L, Monocytes (%) (Auto) 10.6H, Eosinophils (%) (Auto) 1.5, Basophils (%) (Auto) 0.4, Neutrophils # (Auto) 6.9, Lymphocytes # (Auto) 1.9, Monocytes # (Auto) 1.1H, Eosinophils # (Auto) 0.2, Basophils # (Auto) 0.0, Nucleated Red Blood Cells % (auto) 0.0 Current Medications Current Medications Current Medications Acetaminophen (Tylenol Tab) 650 mg Q6HP PRN PO PAIN / FEVER Last administered on 12/07/18at 09:02; Start 11/28/18 at 17:15 Al Hydrox/Mg Hydrox/Simethicone (Mylanta) 30 ml Q4HP PRN PO DYSPEPSIA; Start 11/28/18 at 17:00 Aspirin (Aspirin) 325 mg DAILY PO Last administered on 12/13/18 08:38; Start 11/29/18 at 09:00 Atorvastatin Calcium (Lipitor) 40 mg QHS PO Last administered on 12/12/18at 21:12; Start 11/28/18 at 21:00 Bisacodyl (Dulcolax Suppository) 10 mg DAILYPRN PRN [place] CONSTIPATION Last administered on 12/11/18at 18:17; Start 11/28/18 at 17:00 Docusate Sodium (Colace) 100 mg BID PO Last administered on 11/29/18at 09:59; Start 11/28/18 at 21:00; Stop 11/29/18 at 16:15; Status DC Docusate Sodium (Colace) 100 mg TID PO Last administered on 12/13/18at 08:39; Start 11/29/18 at 16:00 Duloxetine HCl (Cymbalta) 30 mg BID PO Last administered on 12/13/18at 08:38; Start 12/03/18 at 21:00 Duloxetine HCl (Cymbalta) 30 mg DAILY PO Last administered on 12/03/18 08:40; Start 11/29/18 at 09:00; Stop 12/03/18 at 14:17; Status DC Enoxaparin Sodium (Lovenox) 40 mg DAILY SC Last administered on 12/13/18 08:38; Start 11/29/18 at 09:00 Fluoxetine HCl (PROzac) 20 mg DAILY PO Last administered on 12/13/18 08:39; Start 11/29/18 at 09:00 Furosemide (Lasix) 20 mg DAILY PO Last administered on 12/13/18 08:38; Start 11/29/18 at 09:00 Gabapentin (Neurontin) 100 mg TID PO Last administered on 12/13/18 08:38; Start 11/29/18 at 16:00 Home Med (Med Rec Complete!) ASDIRECTED XX ; Start 11/28/18 at 17:30; Stop 11/28/18 at 17:30; Status DC Lidocaine (Lidoderm Patch) 1 patch QHS TD Last administered on 12/12/18 21:12; Start 11/29/18 at 21:00 Lisinopril (Prinivil) 40 mg DAILY PO Last administered on 12/13/18 08:39; Start 11/29/18 at 09:00 Menthol/Methyl Salicylate (Bengay Cream) 1 dose BID TOP Last administered on 12/13/18 08:39; Start 12/03/18 at 21:00 Non-Formulary Medication ( See Comment Field Below ) REMOVE LIDODERM PATCH DAILY XX Last administered on 12/13/18 08:39; Start 11/30/18 at 09:00 Ondansetron HCl (Zofran) 4 mg Q6HP PRN PO NAUSEA; Start 11/28/18 at 17:00 Pantoprazole Sodium (Protonix) 40 mg DAILY PO Last administered on 12/13/18 08:38; Start 11/29/18 at 09:00 Senna (Senokot) 1 tab QHS PO Last administered on 12/12/18 21:12; Start at 21:00 Trazodone HCl (Desyrel) 25 mg QHS PO Last administered on 12/12/18 21:12; Start 11/28/18 at 21:00 Vitamin D (Vitamin D) 2,000 units DAILY PO Last administered on 12/13/18at 08:38; Start 11/29/18 at 09:00 A-FIB/CHADSVASC A-FIB History Current/History of A-Fib/PAF?: No BRADY BUTLER MD December 13, 2018 10:20
[2018-12-13 14:00] VITALS: BP 116/58
[2018-12-13 20:00] VITALS: BP 139/68
[2018-12-13] MEDS: SENNA 8.6 MG TAB (SENOKOT) PO SCH (21:01)
[2018-12-13] MEDS: LIDOCAINE 5% (LIDODERM) PATCH TD SCH (21:02)
[2018-12-13] MEDS: ATORVASTATIN 20 MG TAB PO SCH (21:02)
[2018-12-13] MEDS: traZODone 25MG PER 1/2 TABLET PO SCH (21:02)
[2018-12-14 06:00] VITALS: BP 148/71
[2018-12-14] MEDS: DULoxetine 30 MG CAP (CYMBALTA) PO SCH ×2 (08:41→21:17)
[2018-12-14] MEDS: FLUoxetine 20 MG CAP PO SCH (08:41)
[2018-12-14] MEDS: PANTOPRAZOLE 40MG TAB (PROTONIX) PO SCH (08:41)
[2018-12-14] MEDS: DOCUSATE SODIUM 100 MG CAP PO SCH ×3 (08:41→21:15)
[2018-12-14] MEDS: FUROSEMIDE 20 MG TAB PO SCH (08:41)
[2018-12-14] MEDS: ASPIRIN 325 MG TAB PO SCH (08:41)
[2018-12-14] MEDS: VITAMIN D 1,000 INTERNATIONAL UNITS TABLET PO SCH (08:41)
[2018-12-14] MEDS: GABAPENTIN 100 MG CAP PO SCH ×3 (08:41→21:16)
[2018-12-14] MEDS: LISINOPRIL 40 MG TAB PO SCH (08:41)
[2018-12-14] MEDS: ENOXAPARIN 40 MG/0.4 ML SYRINGE (J1650) SC SCH (08:42)
[2018-12-14] MEDS: **NOTE PATIENT COMMENT** MISC XX SCH (08:42)
[2018-12-14] MEDS: ANALGESIC BALM CRM 120 GM TOP SCH ×2 (08:42→21:17)
--- NOTE | 2018-12-14 10:57 | IPNPDOC ---
PM&R Progress Note DATE OF SERVICE: December 14, 2018 Bolt Machine Operator Progress Note DATE OF ADMISSION: November 28, 2018 at 16:25 INPATIENT REHABILITATION ADMISSION DAY: # SUBJECTIVE: Patient is a -year-old with . ALLERGIES: See Below MEDICATIONS: Reviewed, see below. OBJECTIVE: VITAL SIGNS: Please see below. PHYSICAL EXAMINATION: GENERAL: [Cachectic, well developed, sitting up in bed, no acute distress]. HEENT: [Normocephalic, atraumatic]. [No facial droop]. [Poor dentition, missing teeth. PERRL, EOMI]. CARDIOVASCULAR: [S1, S2, irregular rate]. [No lower limb edema or calf tendernes s]. LUNGS: [Decreased breath sounds, coarse throughout]. ABDOMEN: [Soft, nontender, nondistended. Normoactive bowel sounds throughout]. MUSCULOSKELETAL: MMT: /5 strength proximally bilateral shoulder abduction, forward flexion and bilateral hip flexion. /5 strength bilateral elbow flexion, knee flexion, /5 bilateral elbow extension and knee extension. /5 ob/gyn, dorsiflexion, plantar flexion. NEUROLOGICAL: [Alert and oriented times three]. [Answers all question appropriately]. SKIN: . LABORATORY DATA: Reviewed. Please see below. MICROBIOLOGY: Please see below. IMAGING: ASSESSMENT AND PLAN: 1. . 2. . 3. . TIME SPENT: Chart Review, examination and documentation minutes. Allergies Coded Allergies: Penicillins (Verified Allergy, Intermediate, RASH, 11/28/18) Vital Signs Vital Signs Date Time Temp Pulse Resp B/P (MAP) Pulse Ox O2 Delivery O2 Flow Rate FiO2 12/14/18 06:00 98.4 82 18 148/71 (48) 94 Current Medications Current Medications Current Medications Acetaminophen (Tylenol Tab) 650 mg Q6HP PRN PO PAIN / FEVER Last administered on 12/07/18at 09:02; Start 11/28/18 at 17:15 Al Hydrox/Mg Hydrox/Simethicone (Mylanta) 30 ml Q4HP PRN PO DYSPEPSIA; Start 11/28/18 at 17:00 Aspirin (Aspirin) 325 mg DAILY PO Last administered on 12/14/18at 08:41; Start 11/29/18 at 09:00 Atorvastatin Calcium (Lipitor) 40 mg QHS PO Last administered on 12/13/18at 21:02; Start 11/28/18 at 21:00 Bisacodyl (Dulcolax Suppository) 10 mg DAILYPRN PRN [place] CONSTIPATION Last administered on 12/11/18 18:17; Start 11/28/18 at 17:00 Docusate Sodium (Colace) 100 mg BID PO Last administered on 11/29/18 09:59; Start 11/28/18 at 21:00; Stop 11/29/18 at 16:15; Status DC Docusate Sodium (Colace) 100 mg TID PO Last administered on 12/14/18 08:41; Start 11/29/18 at 16:00 Duloxetine HCl (Cymbalta) 30 mg BID PO Last administered on 12/14/18 08:41; Start 12/03/18 at 21:00 Duloxetine HCl (Cymbalta) 30 mg DAILY PO Last administered on 12/03/18 08:40; Start 11/29/18 at 09:00; Stop 12/03/18 at 14:17; Status DC Enoxaparin Sodium (Lovenox) 40 mg DAILY SC Last administered on 12/14/18 08:42; Start 11/29/18 at 09:00 Fluoxetine HCl (PROzac) 20 mg DAILY PO Last administered on 12/14/18 08:41; Start 11/29/18 at 09:00 Furosemide (Lasix) 20 mg DAILY PO Last administered on 12/14/18 08:41; Start 11/29/18 at 09:00 Gabapentin (Neurontin) 100 mg TID PO Last administered on 12/14/18 08:41; Start 11/29/18 at 16:00 Home Med (Med Rec Complete!) ASDIRECTED XX ; Start 11/28/18 at 17:30; Stop 11/28/18 at 17:30; Status DC Lidocaine (Lidoderm Patch) 1 patch QHS TD Last administered on 12/13/18 21:02; Start 11/29/18 at 21:00 Lisinopril (Prinivil) 40 mg DAILY PO Last administered on 12/14/18 08:41; Start 11/29/18 at 09:00 Menthol/Methyl Salicylate (Bengay Cream) 1 dose BID TOP Last administered on 12/14/18 08:42; Start 12/03/18 at 21:00 Non-Formulary Medication ( See Comment Field Below ) REMOVE LIDODERM PATCH DAILY XX Last administered on 12/14/18 08:42; Start 11/30/18 at 09:00 Ondansetron HCl (Zofran) 4 mg Q6HP PRN PO NAUSEA; Start 11/28/18 at 17:00 Pantoprazole Sodium (Protonix) 40 mg DAILY PO Last administered on 12/14/18 08:41; Start 11/29/18 at 09:00 Senna (Senokot) 1 tab QHS PO Last administered on 12/13/18 21:01; Start 11/28/18 at 21:00 Trazodone HCl (Desyrel) 25 mg QHS PO Last administered on 12/13/18 21:02; Start 11/28/18 at 21:00 Vitamin D (Vitamin D) 2,000 units DAILY PO Last administered on 12/14/18 08:41; Start 11/29/18 at 09:00 A-FIB/CHADSVASC A-FIB History Current/History of A-Fib/PAF?: No BRADY BUTLER MD December 14, 2018 10:57
[2018-12-14 14:00] VITALS: BP 138/70
[2018-12-14 20:00] VITALS: BP 152/70
[2018-12-14] MEDS: SENNA 8.6 MG TAB (SENOKOT) PO SCH (21:16)
[2018-12-14] MEDS: traZODone 25MG PER 1/2 TABLET PO SCH (21:16)
[2018-12-14] MEDS: ATORVASTATIN 20 MG TAB PO SCH (21:17)
[2018-12-15 06:00] VITALS: BP 149/72
[2018-12-15] MEDS: ENOXAPARIN 40 MG/0.4 ML SYRINGE (J1650) SC SCH (09:03)
[2018-12-15] MEDS: FUROSEMIDE 20 MG TAB PO SCH (09:03)
[2018-12-15] MEDS: VITAMIN D 1,000 INTERNATIONAL UNITS TABLET PO SCH (09:03)
[2018-12-15] MEDS: DULoxetine 30 MG CAP (CYMBALTA) PO SCH ×2 (09:03→20:23)
[2018-12-15] MEDS: LISINOPRIL 40 MG TAB PO SCH (09:03)
[2018-12-15] MEDS: FLUoxetine 20 MG CAP PO SCH (09:03)
[2018-12-15] MEDS: GABAPENTIN 100 MG CAP PO SCH ×3 (09:03→20:23)
[2018-12-15] MEDS: PANTOPRAZOLE 40MG TAB (PROTONIX) PO SCH (09:03)
[2018-12-15] MEDS: DOCUSATE SODIUM 100 MG CAP PO SCH ×3 (09:03→20:23)
[2018-12-15] MEDS: ASPIRIN 325 MG TAB PO SCH (09:03)
[2018-12-15] MEDS: LIDOCAINE 5% (LIDODERM) PATCH TD SCH (09:04)
[2018-12-15] MEDS: ANALGESIC BALM CRM 120 GM TOP SCH ×2 (09:06→20:24)
[2018-12-15 14:00] VITALS: BP 143/69
[2018-12-15 20:00] VITALS: BP 138/65
[2018-12-15] MEDS: traZODone 25MG PER 1/2 TABLET PO SCH (20:23)
[2018-12-15] MEDS: ATORVASTATIN 20 MG TAB PO SCH (20:23)
[2018-12-15] MEDS: SENNA 8.6 MG TAB (SENOKOT) PO SCH (20:23)
[2018-12-15] MEDS: **NOTE PATIENT COMMENT** MISC XX SCH (20:26)
[2018-12-16 06:00] VITALS: BP 140/79
[2018-12-16] MEDS: ENOXAPARIN 40 MG/0.4 ML SYRINGE (J1650) SC SCH (08:20)
[2018-12-16] MEDS: LISINOPRIL 40 MG TAB PO SCH (08:20)
[2018-12-16] MEDS: DULoxetine 30 MG CAP (CYMBALTA) PO SCH ×2 (08:20→20:38)
[2018-12-16] MEDS: LIDOCAINE 5% (LIDODERM) PATCH TD SCH (08:20)
[2018-12-16] MEDS: FLUoxetine 20 MG CAP PO SCH (08:20)
[2018-12-16] MEDS: GABAPENTIN 100 MG CAP PO SCH ×3 (08:20→20:29)
[2018-12-16] MEDS: PANTOPRAZOLE 40MG TAB (PROTONIX) PO SCH (08:21)
[2018-12-16] MEDS: FUROSEMIDE 20 MG TAB PO SCH (08:21)
[2018-12-16] MEDS: DOCUSATE SODIUM 100 MG CAP PO SCH ×3 (08:21→20:29)
[2018-12-16] MEDS: ASPIRIN 325 MG TAB PO SCH (08:21)
[2018-12-16] MEDS: VITAMIN D 1,000 INTERNATIONAL UNITS TABLET PO SCH (08:21)
[2018-12-16] MEDS: ANALGESIC BALM CRM 120 GM TOP SCH ×2 (08:29→20:29)
[2018-12-16] MEDS: BISACODYL 10 MG SUPP PR PRN (09:15)
[2018-12-16 14:00] VITALS: BP 144/71
--- NOTE | 2018-12-16 14:01 | HPEPDOC ---
General Date of Admission November 28, 2018 at 16:25 Attending Physician: NIKOLAY COHEN MD Chief Complaint The patient is a 88-year-old male admitted with a reason for visit of Acute Mca Stroke. Source: RN/MD Exam Limitations: Hard of hearing Severity: Moderate History of Present Illness Patient is an 88-year-old male, who was taken to [facility] emergency room on account of left-sided weakness and altered mental status and dark urine. He was transferred from that facility to [facility]. MRI of his brain completed which showed a tiny foci of hyperdensity, to left parietal subcortical, right occipital, right cerebellum abnormality suggestive of acute subacute infarcts. Patient was started on high-dose aspirin. CT of his neck did not show aneurysm, AVM os dissections. It was abnormal for 53% stenosis to his right proximal internal carotid artery and 40% stenosis to his left proximal internal carotid artery. 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 A bubble study was completed, also suggesting patent foramen ovale present with right to left shunt. 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 Imaging of right lower extremity was positive for fibular fracture with impaction. Was evaluated by orthopedic team and cleared for weightbearing as tolerated. Implantable loop recorder was placed the first of a 2018 prior to discharge. He was discharged to this facility for inpatient rehabilitation given recent stroke, findings of lower extremity fracture, and debility due to multiple co morbidities. Home Medications Scheduled Aspirin (Aspirin) 325 Mg Tablet, 325 MG PO DAILY, (Reported) Atorvastatin Calcium (Atorvastatin Calcium) 40 Mg Tablet, 40 MG PO QHS, (Reported) Cholecalciferol (Vitamin D3) (Vitamin D3) 2,000 Unit Tablet, 2,000 UNIT PO DAILY, (Reported) Docusate Sodium (Colace) 100 Mg Capsule, 100 MG PO BID, (Reported) Enoxaparin Sodium (Lovenox) 40 Mg/0.4 Ml Syringe, 40 MG SC DAILY, (Reported) Furosemide (Lasix) 20 Mg Tablet, 20 MG PO DAILY, (Reported) Lisinopril (Lisinopril) 40 Mg Tablet, 40 MG PO DAILY, (Reported) Scheduled PRN Acetaminophen (Tylenol) 325 Mg Tablet, 650 MG PO Q6H PRN for PAIN, (Reported) Allergies Coded Allergies: Penicillins (Verified Allergy, Intermediate, RASH, 11/28/18) Past Medical History Medical History Degenerative disc disease Hypertension Benign prostate hypertrophy Hearing loss Social History * Smoker: Denies Alcohol: Denies Drugs: denies A-FIB/CHADSVASC A-FIB History Current/History of A-Fib/PAF?: No Current Oral Anticoagulant The: No Review of Systems Other systems Very limited review of systems completed due to patient being severely hard of hearing Physical Examination General Exam: Positive: Alert, Cooperative, No Acute Distress Eye Exam: Positive: PERRLA, EOMI ENT Exam: Positive: Atraumatic, Mucous membr. moist/pink (hard oh hearing) Neck Exam: Positive: Supple; Negative: JVD Chest Exam: Positive: Clear to auscultation, Normal air movement; Negative: Rales, Rhonchi, Wheezing Heart Exam: Positive: Rate Normal, Regular Rhythm, Normal S1, Normal S2, Murmurs Abdomen Exam: Positive: Normal bowel sounds, Soft; Negative: Tenderness Extremity Exam: Positive: Edema; Negative: Clubbing, Cyanosis Skin Exam: Positive: Nl turgor and temperature; Negative: Rash, Breakdown Neuro Exam: Negative: Strength at 5/5 X4 ext (Right lower extremity weakness) Psych Exam: Positive: Mental status NL, Mood NL; Negative: Anxiety Vital Signs Vital Signs Date Time Temp Pulse Resp B/P (MAP) Pulse Ox O2 Delivery O2 Flow Rate FiO2 12/16/18 06:00 97.9 98 18 140/79 (99) 92 Assessment/Plan Acute stroke with neurologic deficits -Continued with rehabilitation therapy management by primary team -Persistent right lower extremity weakness but improving -Status post implantation of implantable loop recorder for continued monitoring for malignant arrhythmias Hypertension -Continue lisinopril -Currently controlled Peripheral arterial disease -Right and left internal carotid stenosis 53 and 40% respectively -Continue aspirin and statin therapy Right proximal fibular fracture -Evaluated by orthopedic team at another facility with encouragement for weight bearing as tolerated -Continued management mobilization by primary team Benign prostatic hypertrophy -No retention noted -Continue monitoring of input and output DVT prophylaxis -Lovenox subcutaneous daily Plan / VTE VTE Prophylaxis Ordered?: Yes WILY TOLLIVER December 16, 2018 14:01
[2018-12-16 20:00] VITALS: BP 137/76
[2018-12-16] MEDS: SENNA 8.6 MG TAB (SENOKOT) PO SCH (20:29)
[2018-12-16] MEDS: traZODone 25MG PER 1/2 TABLET PO SCH (20:29)
[2018-12-16] MEDS: ATORVASTATIN 20 MG TAB PO SCH (20:29)
[2018-12-16] MEDS: **NOTE PATIENT COMMENT** MISC XX SCH (20:34)
[2018-12-17 06:29] VITALS: BP 140/62
[2018-12-17 06:31] LABS: HEMATOCRIT 42.4 % (42.0-52.0); HEMOGLOBIN 13.9 g/dl (13.5-17.5); MEAN CORPUSCULAR HEMOGLOBIN 31.7 pg (27.0-33.0); MEAN CORPUSCULAR HGB CONC 32.8 g/dl (32.0-36.5); MEAN CORPUSCULAR VOLUME 96.8 fl (80.0-96.0); PLATELET COUNT, AUTOMATED 262 10^3/uL (150-450); RED BLOOD COUNT 4.38 10^6/uL (4.30-6.10); WHITE BLOOD COUNT 10.1 10^3/uL (4.0-10.0)
[2018-12-17 06:52] LABS: ALBUMIN 3.1 GM/DL (3.2-5.2); ALT/SGPT 24 U/L (12-78); BILIRUBIN,TOTAL 0.5 MG/DL (0.2-1.0); BLOOD UREA NITROGEN 18 MG/DL (7-18); CARBON DIOXIDE LEVEL 31 MEQ/L (21-32); CHLORIDE LEVEL 101 MEQ/L (98-107); CREATININE FOR GFR 0.88 MG/DL (0.70-1.30); GLOMERULAR FILTRATION RATE > 60.0 (>35); GLUCOSE, FASTING 101 MG/DL (70-100); MAGNESIUM LEVEL 1.9 MG/DL (1.8-2.4); POTASSIUM SERUM 4.1 MEQ/L (3.5-5.1); SODIUM LEVEL 136 MEQ/L (136-145); TOTAL PROTEIN 6.3 GM/DL (6.4-8.2)
[2018-12-17] MEDS: ANALGESIC BALM CRM 120 GM TOP SCH ×2 (09:00→20:16)
[2018-12-17] MEDS: FUROSEMIDE 20 MG TAB PO SCH (09:17)
[2018-12-17] MEDS: PANTOPRAZOLE 40MG TAB (PROTONIX) PO SCH (09:17)
[2018-12-17] MEDS: VITAMIN D 1,000 INTERNATIONAL UNITS TABLET PO SCH (09:17)
[2018-12-17] MEDS: DOCUSATE SODIUM 100 MG CAP PO SCH ×3 (09:17→20:15)
[2018-12-17] MEDS: DULoxetine 30 MG CAP (CYMBALTA) PO SCH ×2 (09:17→20:16)
[2018-12-17] MEDS: LIDOCAINE 5% (LIDODERM) PATCH TD SCH (09:17)
[2018-12-17] MEDS: ASPIRIN 325 MG TAB PO SCH (09:17)
[2018-12-17] MEDS: GABAPENTIN 100 MG CAP PO SCH ×3 (09:17→20:16)
[2018-12-17] MEDS: LISINOPRIL 40 MG TAB PO SCH (09:17)
[2018-12-17] MEDS: FLUoxetine 20 MG CAP PO SCH (09:17)
[2018-12-17] MEDS: ENOXAPARIN 40 MG/0.4 ML SYRINGE (J1650) SC SCH (09:18)
[2018-12-17 14:00] VITALS: BP 150/70
--- NOTE | 2018-12-17 14:01 | IPNPDOC ---
Subjective Date Seen The patient was seen on 12/17/18. Subjective Chief Complaint/HPI Patient is an 88-year-old male, who was taken to [facility] emergency room on account of left-sided weakness and altered mental status and dark urine. He was transferred from that facility to [facility]. MRI of his brain completed which showed a tiny foci of hyperdensity, to left parietal subcortical, right occipital, right cerebellum abnormality suggestive of acute subacute infarcts. Patient was started on high-dose aspirin. CT of his neck did not show aneurysm, AVM os dissections. It was abnormal for 53% stenosis to his right proximal internal carotid artery and 40% stenosis to his left proximal internal carotid artery. Objective Physical Examination General Exam: Positive: Alert, Cooperative, No Acute Distress Eye Exam: Positive: PERRLA, EOMI ENT Exam: Positive: Atraumatic, Mucous membr. moist/pink (hard oh hearing) Neck Exam: Positive: Supple; Negative: JVD Chest Exam: Positive: Clear to auscultation, Normal air movement; Negative: Rales, Rhonchi, Wheezing Heart Exam: Positive: Rate Normal, Regular Rhythm, Normal S1, Normal S2, Murmurs Abdomen Exam: Positive: Normal bowel sounds, Soft; Negative: Tenderness Extremity Exam: Positive: Edema; Negative: Clubbing, Cyanosis Skin Exam: Positive: Nl turgor and temperature; Negative: Rash, Breakdown Neuro Exam: Negative: Strength at 5/5 X4 ext (Right lower extremity weakness) Psych Exam: Positive: Mental status NL, Mood NL; Negative: Anxiety A-FIB/CHADSVASC A-FIB History Current/History of A-Fib/PAF?: No Current Oral Anticoagulant The: No Assessment /Plan Assessment Acute stroke with neurologic deficits -continues to improve -Continued with rehabilitation therapy, management by primary team -Persistent right lower extremity weakness but improving -Status post implantation of implantable loop recorder for continued monitoring for malignant arrhythmias Hypertension -Continue lisinopril -Currently controlled Peripheral arterial disease -Right and left internal carotid stenosis 53 and 40% respectively -Continue aspirin and statin therapy Right proximal fibular fracture -Evaluated by orthopedic team at another facility with encouragement for weight bearing as tolerated -Continued management mobilization by primary team Benign prostatic hypertrophy -No retention noted -Continue monitoring of input and output DVT prophylaxis -Lovenox subcutaneous daily Plan/VTE VTE Prophylaxis Ordered?: Yes VS, I&O, 24H, Fishbone Vital Signs/I&O Vital Signs Date Time Temp Pulse Resp B/P (MAP) Pulse Ox O2 Delivery O2 Flow Rate FiO2 12/17/18 06:29 140/62 (88) 12/17/18 06:00 97.5 89 18 94 I&O- Last 24 Hours up to 6 AM 12/17/18 05:59 Intake Total 1380 ml Output Total 1050 ml Balance 330 ml Laboratory Data 24H LABS Laboratory Tests 2 12/17/18 05:57: Nucleated Red Blood Cells % (auto) 0.0, Anion Gap 4L, Glomerular Filtration Rate > 60.0, Blood Urea Nitrogen 18, Creatinine 0.88, Sodium Level 136, Potassium Level 4.1, Chloride Level 101, Carbon Dioxide Level 31, Calcium Level 10.0, Aspartate Amino Transf (AST/SGOT) 15, Alanine Aminotransferase (ALT/SGPT) 24, Alkaline Phosphatase 120H, Total Bilirubin 0.5, Total Protein 6.3L, Albumin 3.1L, Magnesium Level 1.9, Albumin/Globulin Ratio 0.97L CBC/BMP Laboratory Tests 12/17/18 05:57 Red Blood Count 4.38, Mean Corpuscular Volume 96.8 H, Mean Corpuscular Hemoglobin 31.7, Mean Corpuscular Hemoglobin Concent 32.8, Red Cell Distribution Width 12.8, Calcium Level 10.0, Aspartate Amino Transf (AST/SGOT) 15, Alanine Aminotransferase (ALT/SGPT) 24, Alkaline Phosphatase 120 H, Total Bilirubin 0.5, Total Protein 6.3 L, Albumin 3.1 L WILY TOLLIVER December 17, 2018 14:01
[2018-12-17 19:48] VITALS: BP 142/80
[2018-12-17] MEDS: ATORVASTATIN 20 MG TAB PO SCH (20:15)
[2018-12-17] MEDS: SENNA 8.6 MG TAB (SENOKOT) PO SCH (20:15)
[2018-12-17] MEDS: **NOTE PATIENT COMMENT** MISC XX SCH (20:16)
[2018-12-17] MEDS: traZODone 25MG PER 1/2 TABLET PO SCH (20:16)
[2018-12-18 05:31] VITALS: BP 138/66
[2018-12-18] MEDS ORDERED: PANT40TA3 PO (08:34)
[2018-12-18] MEDS ORDERED: GABA-1171 PO (08:34)
[2018-12-18] MEDS ORDERED: CYMB1CAP5 PO (08:34)
[2018-12-18] MEDS ORDERED: FURO20TA2 PO (08:34)
[2018-12-18] MEDS ORDERED: LISI40TA PO (08:34)
[2018-12-18] MEDS ORDERED: ASPI-1 PO (08:34)
[2018-12-18] MEDS ORDERED: ATOR1TAB21 PO (08:34)
[2018-12-18] MEDS: DOCUSATE SODIUM 100 MG CAP PO SCH (09:13)
[2018-12-18] MEDS: DULoxetine 30 MG CAP (CYMBALTA) PO SCH (09:13)
[2018-12-18] MEDS: FLUoxetine 20 MG CAP PO SCH (09:13)
[2018-12-18] MEDS: FUROSEMIDE 20 MG TAB PO SCH (09:13)
[2018-12-18] MEDS: LIDOCAINE 5% (LIDODERM) PATCH TD SCH (09:13)
[2018-12-18] MEDS: VITAMIN D 1,000 INTERNATIONAL UNITS TABLET PO SCH (09:13)
[2018-12-18] MEDS: PANTOPRAZOLE 40MG TAB (PROTONIX) PO SCH (09:13)
[2018-12-18] MEDS: ASPIRIN 325 MG TAB PO SCH (09:13)
[2018-12-18] MEDS: LISINOPRIL 40 MG TAB PO SCH (09:13)
[2018-12-18] MEDS: GABAPENTIN 100 MG CAP PO SCH (09:13)
[2018-12-18] MEDS: ANALGESIC BALM CRM 120 GM TOP SCH (09:14)
[2018-12-18] MEDS: ENOXAPARIN 40 MG/0.4 ML SYRINGE (J1650) SC SCH (09:16)
--- NOTE | 2018-12-20 13:58 | IPN ---
DATE: 12/18/2018 A 89-year-old male who was taken to [place] [facility]. He had left-sided weakness, altered mental status. He was transferred to [facility]. MRI of the brain showed a tiny focus of hyper-density to the left parietal subcortical, right occipital, right cerebellum abnormality suggestive of subacute infarcts. He was started on high-dose aspirin and (dictation fades out) for rehabilitation at [facility]. PHYSICAL EXAM: Blood pressure 138/66, pulse 82, respirations 18, oxygen saturation (O2 sat) 94%, temperature 97.1. Patient is alert and oriented times three. Pupils equal and reactive to light. Pharynx: Tongue and gums pink and moist. Tongue is midline. Patient is hard of hearing. Neck is without lymphadenopathy. No thyromegaly. No goiter. Jugular venous pressure is below clavicle 60 degrees. Chest is clear to auscultation without wheeze or retraction. Heart is regular. Abdomen is benign. Bowel sounds are positive. Genital/Rectal: Not done. Extremities show right lower extremity weakness. Peripheral pulses equal and palpable bilaterally. Skin is warm and dry. IMPRESSION/PLAN: Acute stroke with neurological deficits. Continues to improve. He continues with rehab therapy. Persistent but improved right lower extremity weakness. Patient with implantable loop recorder for continued monitoring for malignant arrhythmias. Hypertension. Stable. Continue lisinopril. Peripheral arterial disease. Continue aspirin and statin therapy. Right and left internal carotid stenosis, 53 to 40% respectively. Right proximal fibula fracture. Weightbearing as tolerated. Benign prostatic hypertrophy. No retention noted. Deep vein thrombosis (DVT) prophylaxis. Continues on Lovenox. LABORATORY STUDIES: Hemoglobin and hematocrit 13.9 and 42.4, platelets are 262. Electrolytes are normal. BUN 18, creatinine 0.88. Urine culture on 11/28/2018 was negative. PLAN: Patient is being discharged today having met his inpatient goals. Discharge orders and instructions per Dr. Marshall.
== END 2018-12-18 11:30 | disposition home health service (06) | DRG 57 ==
LOC: M PM&R 16:25
PROVIDERS: ADMIT Physical Medicine & Rehabilitation; ATTEND Physical Medicine & Rehabilitation
DX: I69.391 Dysphagia following cerebral infarction (principal); I69.351 Hemiplegia and hemiparesis following cerebral infarction affecting right dominant side; R26.89 Other abnormalities of gait and mobility; I10 Essential (primary) hypertension; N40.0 Benign prostatic hyperplasia without lower urinary tract symptoms; M54.5 Low back pain; Z79.899 Other long term (current) drug therapy; Z79.82 Long term (current) use of aspirin; Z88.0 Allergy status to penicillin; S82.401D Unspecified fracture of shaft of right fibula, subsequent encounter for closed fracture with routine healing; W18.30XD Fall on same level, unspecified, subsequent encounter; Y92.009 Unspecified place in unspecified non-institutional (private) residence as the place of occurrence of the external cause; Z85.89 Personal history of malignant neoplasm of other organs and systems; I65.23 Occlusion and stenosis of bilateral carotid arteries

== ENCOUNTER 2019-05-27 15:08 | Outpatient (RCR) | payer MEDICARE, OTHER ==
[~2019-05-27 15:08] MED LIST changes: +ACET-907 PO; +ASPI-1 PO; +ATOR1TAB21 PO; +ATOR40TA75 PO; +BAYE325T12 PO; +COLA100C5 PO; +CYMB1CAP5 PO; +D32000TA PO; +FURO20TA2 PO; +GABA-1171 PO; +LASI20TA3 PO; +LOVE1INJ SC; +PANT40TA3 PO
== END 2019-05-30 ==
LOC: M PT 15:08
PROVIDERS: ATTEND Family Medicine
DX: R60.0 Localized edema (principal)

== ENCOUNTER 2019-06-24 15:22 | Outpatient (RCR) | payer MEDICARE, OTHER | END 2019-06-29 | LOC: M PT 15:22 | PROVIDERS: ATTEND Family Medicine | DX: R60.0 Localized edema (principal) ==

== ENCOUNTER 2020-03-27 09:25 | Outpatient (RCR) | payer MEDICARE, OTHER ==
[~2020-03-27 09:25] MED LIST changes: +AMLO1TAB24 PO; -AMLO5TAB6 PO; +PANT40TA29 PO; -PANT40TA3 PO
== END 2020-03-30 ==
LOC: M PT 09:25
PROVIDERS: ATTEND Internal Medicine
DX: I89.0 Lymphedema, not elsewhere classified (principal)

== ENCOUNTER 2020-04-24 10:00 | Outpatient (RCR) | payer MEDICARE, OTHER | END 2020-04-29 | LOC: M PT 10:00 | PROVIDERS: ATTEND Internal Medicine | DX: I89.0 Lymphedema, not elsewhere classified (principal) ==

== ENCOUNTER 2020-05-14 08:15 | Outpatient (RCR) | payer MEDICARE, OTHER | END 2020-05-30 | LOC: M PT 08:15 | PROVIDERS: ATTEND Internal Medicine | DX: I89.0 Lymphedema, not elsewhere classified (principal) ==